=== PATIENT | female | born 1950 | race Caucasian/White ===

== ENCOUNTER → 2018-07-14 10:40 | Outpatient (CLI) | payer MEDICARE, SELFPAY ==
--- NOTE | 2018-07-14 10:50 | XR_ITS ---
XR shoulder RT min 2V HISTORY: ITS.REASON: ACUTE RT SHOULDER PAIN ORDERING PHYSICIAN: Jasmin Martinez PATIENT AGE: 68 years Comparison: None FINDINGS: No fracture or dislocation. No lytic or blastic change. There is normal mineralization. The joint spaces are well-preserved. No significant degenerative/arthritic changes. No erosive changes evident. IMPRESSION: Negative, no acute finding
== END ==
PROVIDERS: PCP Family Medicine; Visit Provider Nurse Practitioner Family
DX: M25.511 Pain in right shoulder (principal)
CPT/HCPCS: 73030

== ENCOUNTER → 2020-10-08 12:25 | Outpatient (CLI) | payer MEDICARE, SELFPAY | PROVIDERS: Visit Provider Family Medicine | DX: J40 Bronchitis, not specified as acute or chronic (principal) ==

== ENCOUNTER 2022-06-30 18:51 | Emergency (ER) | payer MEDICARE, SELFPAY ==
[2022-06-30 19:00] VITALS: BP 107/77; PULSE 65; RESP 20; TEMP 36.9; O2SAT 98; BMI 28.8
--- NOTE | 2022-06-30 19:21 | EXP.UTC ---
Discharge Plan Disposition Patient Disposition: Home, Self-Care Condition: Good Prescriptions Prescriptions: New azithromycin [Zithromax] 250 mg tablet 250 mg PO UD DOSE PK Qty: 6 0RF Rx Instructions: Take two (2) tablets today, then one (1) tablet days #2 thru #5 benzonatate [benzonatate] 100 mg capsule 100 mg PO TIDP PRN (Reason: Cough) Qty: 30 0RF methylprednisolone 4 mg Tablets,Dose Pack 4 mg PO DIRECTED Qty: 21 0RF Referrals Follow up/Referrals: Casimiro Carpenter MD [Primary Care Provider] - See instructions Activity Restrictions/Add. Instructions Additional Instructions/Restrictions: Drink plenty of fluids. Take tylenol or ibuprofen for pain or fever. Take the medications as directed. Follow up with your regular doctor. GO TO THE ER FOR ANY WORSENING SYMPTOMS Throw your tooth brush away and get a new one. Quarantine until you know the results of your covid-19 test. Notify your school or workplace of your results and follow their instructions regarding return to work/school. Clinical Impressions Clinical Impression: Sinusitis, Pharyngitis Instructions Patient Instructions: DI for Pharyngitis/Tonsillopharyngitis -- Adult, DI for Sinusitis, Azithromycin Discharge ED Provider: Isael Ta [facility] General Stated complaint: fever,BOWSER Sore throat Mode of Arrival: Ambulatory Source of Information: Patient Limitations: No Limitations Time Seen by Provider: 06/30/22 19:18 Description of Symptoms (Recalled from Triage Doc. by RN): throat, fever, hx of strep and sinus infection HEENT Symptoms (Recalled from RN notes): Yes Resp Symptoms (Recalled from RN notes): No Skin Symptoms (Recalled from RN notes): No MS Symptoms (Recalled from RN notes): No Functional Status (Recalled from RN notes): n/a History of Present Illness Provider Complaint: She states that for the past 5 day she has had sinus congestion, scratchy throat and ear pressure. She denies fever. Related Data Previous Rx's Medication Instructions Recorded azithromycin 250 mg tablet 250 mg PO UD DOSE PK #6 tabs 06/30/22 (Zithromax) benzonatate 100 mg capsule 100 mg PO TIDP PRN Cough #30 caps 06/30/22 methylprednisolone 4 mg tablets in 4 mg PO DIRECTED #21 tabs 06/30/22 a dose pack Allergies Allergy/AdvReac Type Severity Reaction Status Date / Time iodine Allergy Verified 06/30/22 19:12 Worker's Comp Is this a Worker's Comp case?: No [facility] Disclaimer: The information contained in this section may have been updated after the patient was seen, as this information can be updated by other users. Social History Smoking Status: Never smoker alcohol intake: never current occupational status: retired Travel in the last 8 weeks: None ROS Obtained: Yes All systems reviewed & no additional complaints except as documented Constitutional Constitutional: Reports poor appetite Eyes Eyes: Reports system reviewed and no additional complaints, except as documented ENT Ears, Nose, Mouth, and Throat: Reports as per HPI Cardiovascular Cardiovascular: Reports system reviewed and no additional complaints, except as documented and Denies chest pain Respiratory Respiratory: Denies shortness of breath, Denies chest congestion, Reports cough, Denies stridor and Denies wheezing Gastrointestinal Gastrointestingal: Reports system reviewed and no additional complaints, except as documented; Denies abdominal pain, diarrhea or vomiting Musculoskeletal Musculoskeletal: Reports system reviewed and no additional complaints, except as documented and Denies arthralgias Integumentary/Breasts Skin/Breast: Reports system reviewed and no additional complaints, except as documented and Denies rash Neurologic Neurologic: Denies paresthesias Allergic/Immunologic Allergic/Immunologic: Denies wheezing Physical Exam General General appearance: alert and in no
[2022-06-30 19:33] LABS: UTC Strep Screen (Rapid) Negative (Negative)
[2022-06-30 19:47] VITALS: BP 107/77; PULSE 65; RESP 20; TEMP 36.9; O2SAT 98
== END 2022-06-30 19:47 | disposition home or self-care (01) ==
PROVIDERS: Emergency Provider Nurse Practitioner Family; PCP Family Medicine
DX: J01.90 Acute sinusitis, unspecified (principal); J02.9 Acute pharyngitis, unspecified; R50.9 Fever, unspecified
CPT/HCPCS: 87880; 99212; 99214; G0463

== ENCOUNTER 2022-11-17 09:01 | Emergency (ER) | payer MEDICARE, SELFPAY ==
[2022-11-17 09:10] VITALS: BP 121/65; PULSE 54; RESP 20; TEMP 36.5; O2SAT 98; BMI 31.0
--- NOTE | 2022-11-17 09:12 | EXP.UTC ---
Discharge Plan Disposition Patient Disposition: Home, Self-Care Condition: Good Prescriptions Prescriptions: New ciprofloxacin HCl [Cipro] 500 mg tablet 500 mg PO BID 7 Days Qty: 14 0RF No Action bisoprolol fumarate 5 mg tablet 5 mg PO DAILY levothyroxine 125 mcg Tablet 125 mcg PO DAILY montelukast 10 mg tablet 10 mg PO DAILY Referrals Follow up/Referrals: Casimiro Carpenter MD [Primary Care Provider] - See instructions Activity Restrictions/Add. Instructions Additional Instructions/Restrictions: Drink plenty of fluids. Take tylenol or ibuprofen for pain or fever. Take the medications as directed. Follow up with your regular doctor. GO TO THE ER FOR ANY WORSENING SYMPTOMS We will culture the urine. That will tell what bacteria is causing your infection and which antibiotics will treat it best. Sometimes the first antibiotic we prescribe turns out to not work against different bacteria. So, make sure you follow up within 3 days if you are not getting better. Clinical Impressions Clinical Impression: UTI (urinary tract infection) Instructions Patient Instructions: Urinary Tract Infection, DI for Urinary Tract Infection (UTI) Discharge ED Provider: Isael Ta [facility] General Stated complaint: right side pain Time Seen by Provider: 11/17/22 09:12 History of Present Illness Provider Complaint: She states that she has had dysuria and urinary frequency for the past 2 days. Related Data Home Medications Medication Instructions Recorded Confirmed bisoprolol fumarate 5 mg tablet 5 mg PO DAILY . 11/17/22 11/17/22 levothyroxine 125 mcg tablet 125 mcg PO DAILY Supplement 11/17/22 11/17/22 montelukast 10 mg tablet 10 mg PO DAILY Allergy Symptoms 11/17/22 11/17/22 Previous Rx's Medication Instructions Recorded ciprofloxacin HCl 500 mg tablet 500 mg PO BID 7 days #14 tabs 11/17/22 (Cipro) Allergies Allergy/AdvReac Type Severity Reaction Status Date / Time iodine Allergy Verified 06/30/22 19:12 [facility] Disclaimer: The information contained in this section may have been updated after the patient was seen, as this information can be updated by other users. Medical History Asthma Thyroid disease Surgical History History of cholecystectomy Social History Smoking Status: Never smoker alcohol intake: never current occupational status: retired Travel in the last 8 weeks: None ROS Obtained: Yes All systems reviewed & no additional complaints except as documented Constitutional Constitutional: Reports system reviewed and no additional complaints, except as documented, Denies chills and Denies fever(s) Eyes Eyes: Denies eye discharge ENT Ears, Nose, Mouth, and Throat: Denies dysphagia, Denies sore throat and Denies throat swelling Cardiovascular Cardiovascular: Denies chest pain and Denies dyspnea Respiratory Respiratory: Denies chest congestion, Denies cough and Denies dyspnea Gastrointestinal Gastrointestingal: Denies abdominal pain, constipation, diarrhea, dysphagia, nausea or vomiting Genitourinary Female Genitourinary: Reports as per HPI, Reports dysuria, Reports sexual dysfunction, Reports urinary frequency, Denies urinary incontinence and Reports urinary hesitancy Musculoskeletal Musculoskeletal: Denies arthralgias and Reports back pain Integumentary/Breasts Skin/Breast: Denies rash Neurologic Neurologic: Denies paresthesias Allergic/Immunologic Allergic/Immunologic: Denies throat swelling Physical Exam General General appearance: alert and in no apparent distress Head Head exam: atraumatic and normocephalic Eye Eye exam: Present normal appearance, PERRL and EOMI ENT ENT exam: Prese
[2022-11-17 09:20] LABS: Microscopic, Urine URINE MICROSCOPIC (MICROSCOPIC)
[2022-11-17 09:22] LABS: Appearance,Urine CLEAR (Clear); Bilirubin,Urine Negative (Negative); Blood, Urine Negative (Negative); Color,Urine YELLOW (Yellow); Glucose,Urine (UA) Negative (Negative); Ketones,Urine Negative (Negative); Leukocyte Esterase,Urine 1+ (Negative); Nitrate,Urine Negative (Negative); PH,Urine 6.5 (5.0-8.5); Protein,Urine Negative (Negative); Urobilinogen,Urine 0.2 EU/dl (0.2)
[2022-11-17 09:33] LABS: Bacteria,Urine 1+ /lpf
[2022-11-17 09:35] VITALS: BP 121/65; PULSE 54; RESP 18; TEMP 36.5; O2SAT 98
== END 2022-11-17 09:36 | disposition home or self-care (01) ==
PROVIDERS: Emergency Provider Nurse Practitioner Family; PCP Family Medicine
DX: N39.0 Urinary tract infection, site not specified (principal); E03.9 Hypothyroidism, unspecified; J45.909 Unspecified asthma, uncomplicated
CPT/HCPCS: 81001; 87086; 99212; 99214; G0463

== ENCOUNTER 2022-11-25 15:27 | Emergency (ER) | payer MEDICARE, SELFPAY ==
[2022-11-25 15:50] VITALS: BP 120/72; PULSE 83; RESP 19; TEMP 37.2; O2SAT 98; BMI 31.3
--- NOTE | 2022-11-25 16:10 | EXP.UTC ---
Discharge Plan Disposition Patient Disposition: Home, Self-Care Condition: Good Prescriptions Prescriptions: New fluticasone propionate [Flonase Allergy Relief] 50 mcg/actuation spray,suspension 1 - 2 spray intranasal DAILY Qty: 16 0RF Rx Instructions: administer into each nostril No Action bisoprolol fumarate 5 mg tablet 5 mg PO DAILY levothyroxine 125 mcg Tablet 125 mcg PO DAILY montelukast 10 mg tablet 10 mg PO DAILY ciprofloxacin HCl [Cipro] 500 mg tablet 500 mg PO BID 7 Days Qty: 14 0RF Referrals Follow up/Referrals: Casimiro Carpenter MD [Primary Care Provider] - See instructions Activity Restrictions/Add. Instructions Additional Instructions/Restrictions: *Monitor Temp, Over the counter Motrin or Tylenol as directed/as needed Tylenol every 4 hours and Motrin every 6 hours (as long as your family doctor has told you that you can take it) for fever or pain. and straight to ER if unable to lower temp less than 101.0 after medication given *Warm salt water gargles may help to soothe the throat *Throat Lozenges? *Warm fluids like tea with honey may help to soothe the throat? *Sleep elevated *Humidifier/Vaporizer *Flonase 2 sprays in each nostril daily but be aware that it may take 2-3 days before you notice improvement Follow up IMMEDIATELY for new or worsening symptoms or no Noticeable improvement over the next 48-72 hours. 911 for difficulty breathing or swallowing You were tested for today for Upper Respiratory Panel with COVID19 your test result should be back in the next 24-48 hours, you may check your results on the [facility] Clinical Impressions Clinical Impression: Viral upper respiratory infection Instructions Patient Instructions: Sore Throat, DI for Nasal Congestion Discharge ED Provider: Melanie Ott [facility] [place] General Stated complaint: headache,fever,nausea,cough Mode of Arrival: Ambulatory Source of Information: Patient Limitations: No Limitations Time Seen by Provider: 11/25/22 16:15 Description of Symptoms (Recalled from Triage Doc. by RN): PATIENT C/O HEADACHE, NAUSEA, AND FEVER SINCE THIS MORNING HEENT Symptoms (Recalled from RN notes): Yes Resp Symptoms (Recalled from RN notes): No Skin Symptoms (Recalled from RN notes): No MS Symptoms (Recalled from RN notes): No Functional Status (Recalled from RN notes): WNL History of Present Illness Provider Complaint: Patient states that she was fine when she laid down last night but woke up in the middle of the night having fever, chills, sinus congestion and headache States that today she has continued to feel bad with pressure in her sinuses so she came in to get checked Related Data Home Medications Medication Instructions Recorded Confirmed bisoprolol fumarate 5 mg tablet 5 mg PO DAILY . 11/17/22 11/17/22 levothyroxine 125 mcg tablet 125 mcg PO DAILY Supplement 11/17/22 11/17/22 montelukast 10 mg tablet 10 mg PO DAILY Allergy Symptoms 11/17/22 11/17/22 Previous Rx's Medication Instructions Recorded ciprofloxacin HCl 500 mg tablet 500 mg PO BID 7 days #14 tabs 11/17/22 (Cipro) fluticasone propionate 50 1 - 2 spray intranasal DAILY #16 11/25/22 mcg/actuation nasal grams spray,suspension (Flonase Allergy Relief) Allergies Allergy/AdvReac Type Severity Reaction Status Date / Time iodine Allergy Verified 06/30/22 19:12 Worker's Comp Is this a Worker's Comp case?: No [facility] Disclaimer: The information contained in this section may have been updated after the patient was seen, as this information can be updated by other users. Medical History Asthma Thyroid disease Surgical History History of cholecystectomy Social History Smoking Status: Never smoker alcoh
[2022-11-25 16:20] VITALS: BP 120/72; PULSE 83; RESP 19; TEMP 37.2; O2SAT 98
== END 2022-11-25 16:22 | disposition home or self-care (01) ==
PROVIDERS: Emergency Provider Nurse Practitioner; PCP Family Medicine
DX: U07.1 COVID-19 (principal); R50.9 Fever, unspecified; R51.9 Headache, unspecified; E03.9 Hypothyroidism, unspecified; J45.909 Unspecified asthma, uncomplicated
CPT/HCPCS: 99212; 99214; G0463

== ENCOUNTER 2022-11-26 09:13 | Emergency (ER) | payer MEDICARE, SELFPAY ==
[2022-11-26 09:13] VITALS: BP 158/80; PULSE 70; RESP 18; TEMP 37.3; O2SAT 95; BMI 31.3
--- NOTE | 2022-11-26 09:23 | EXP.UTC ---
Discharge Plan Disposition Patient Disposition: Home, Self-Care Condition: Good Prescriptions Prescriptions: New Paxlovid 300 mg (150 mg x 2)-100 mg tablets,dose pack See Rx Instructions .ROUTE .COMPLEX Qty: 30 0RF Rx Instructions: take TWO 150 mg tablets of nirmatrelvir with ONE 100 mg tablet of ritonavir twice daily for 5 days benzonatate [benzonatate] 100 mg capsule 100 mg PO TIDP PRN (Reason: Cough) Qty: 30 0RF ondansetron 4 mg Tablet,Disintegrating 4 mg PO Q8H PRN (Reason: Nausea) Qty: 12 0RF No Action bisoprolol fumarate 5 mg tablet 5 mg PO DAILY levothyroxine 125 mcg Tablet 125 mcg PO DAILY montelukast 10 mg tablet 10 mg PO DAILY ciprofloxacin HCl [Cipro] 500 mg tablet 500 mg PO BID 7 Days Qty: 14 0RF fluticasone propionate [Flonase Allergy Relief] 50 mcg/actuation spray,suspension 1 - 2 spray intranasal DAILY Qty: 16 0RF Rx Instructions: administer into each nostril Referrals Follow up/Referrals: Casimiro Carpenter MD [Primary Care Provider] - See instructions Activity Restrictions/Add. Instructions Additional Instructions/Restrictions: Drink plenty of fluids. Take tylenol for pain or fever. Take the medications as directed. Follow up with your regular doctor. GO TO THE ER FOR ANY WORSENING SYMPTOMS per current recommendations of the cdc. Clinical Impressions Clinical Impression: COVID-19 Instructions Patient Instructions: Coronavirus Disease 2019, Preventing the Spread of Coronavirus Discharge Instructions Discharge ED Provider: Isael Ta [facility] General Stated complaint: head congestion cough nausea Time Seen by Provider: 11/26/22 09:23 History of Present Illness Provider Complaint: She states that she has felt bad for the past 2 days. She has sinus congestion, head ache, scratchy sore throat, nonproductive cough and malaise. She tested positive on a home covid-19 test this morning. Related Data Home Medications Medication Instructions Recorded Confirmed bisoprolol fumarate 5 mg tablet 5 mg PO DAILY . 11/17/22 11/17/22 levothyroxine 125 mcg tablet 125 mcg PO DAILY Supplement 11/17/22 11/17/22 montelukast 10 mg tablet 10 mg PO DAILY Allergy Symptoms 11/17/22 11/17/22 Previous Rx's Medication Instructions Recorded ciprofloxacin HCl 500 mg tablet 500 mg PO BID 7 days #14 tabs 11/17/22 (Cipro) fluticasone propionate 50 1 - 2 spray intranasal DAILY #16 11/25/22 mcg/actuation nasal grams spray,suspension (Flonase Allergy Relief) benzonatate 100 mg capsule 100 mg PO TIDP PRN Cough #30 caps 11/26/22 nirmatrelvir 300 mg (150 mg See Rx Instructions PO .COMPLEX 11/26/22 x2)-ritonavir 100 mg tablet,dose #30 tabs pack (Paxlovid) ondansetron 4 mg disintegrating 4 mg PO Q8H PRN Nausea #12 tabs 11/26/22 tablet Allergies Allergy/AdvReac Type Severity Reaction Status Date / Time iodine Allergy Verified 06/30/22 19:12 [facility] Disclaimer: The information contained in this section may have been updated after the patient was seen, as this information can be updated by other users. Medical History Asthma Thyroid disease Surgical History History of cholecystectomy Social History Smoking Status: Never smoker alcohol intake: never current occupational status: retired Travel in the last 8 weeks: None ROS Obtained: Yes All systems reviewed & no additional complaints except as documented Constitutional Constitutional: Reports poor appetite Eyes Eyes: Reports system reviewed and no additional complaints, except as documented ENT Ears, Nose, Mouth, and Throat: Reports as per HPI Cardiovascular Cardiovascular: Reports system reviewed and no additional complaints, except as documented and Denies chest pain Respiratory R
[2022-11-26 10:07] VITALS: BP 158/80; PULSE 70; RESP 18; TEMP 37.3; O2SAT 95
== END 2022-11-26 10:08 | disposition home or self-care (01) ==
PROVIDERS: Emergency Provider Nurse Practitioner Family; PCP Family Medicine
DX: U07.1 COVID-19 (principal); R51.9 Headache, unspecified; R53.81 Other malaise; E03.9 Hypothyroidism, unspecified; J45.909 Unspecified asthma, uncomplicated
CPT/HCPCS: 99212; 99214; G0463

== ENCOUNTER 2023-05-18 10:12 | Emergency (ER) | payer MEDICARE, SELFPAY ==
--- NOTE | 2023-05-18 11:08 | ED_ITS ---
Discharge Plan Disposition Patient Disposition: Home, Self-Care Condition: Good Prescriptions Prescriptions: New oseltamivir [Tamiflu] 75 mg capsule 75 mg PO BID Qty: 10 0RF ondansetron 4 mg Tablet,Disintegrating 4 mg PO Q8H PRN (Reason: Nausea) Qty: 12 0RF benzonatate [benzonatate] 100 mg capsule 100 mg PO TIDP PRN (Reason: Cough) Qty: 30 0RF No Action bisoprolol fumarate 5 mg tablet 5 mg PO DAILY levothyroxine 125 mcg Tablet 125 mcg PO DAILY montelukast 10 mg tablet 10 mg PO DAILY ciprofloxacin HCl [Cipro] 500 mg tablet 500 mg PO BID 7 Days Qty: 14 0RF Paxlovid 300 mg (150 mg x 2)-100 mg tablets,dose pack See Rx Instructions .ROUTE .COMPLEX Qty: 30 0RF Rx Instructions: take TWO 150 mg tablets of nirmatrelvir with ONE 100 mg tablet of ritonavir twice daily for 5 days benzonatate [benzonatate] 100 mg capsule 100 mg PO TIDP PRN (Reason: Cough) Qty: 30 0RF ondansetron 4 mg Tablet,Disintegrating 4 mg PO Q8H PRN (Reason: Nausea) Qty: 12 0RF fluticasone propionate [Flonase Allergy Relief] 50 mcg/actuation spray,suspension 1 - 2 spray intranasal DAILY Qty: 16 0RF Rx Instructions: administer into each nostril Referrals Follow up/Referrals: Casimiro Carpenter MD [Primary Care Provider] - See instructions Activity Restrictions/Add. Instructions Additional Instructions/Restrictions: Drink plenty of fluids. Take tylenol or ibuprofen for pain or fever. Take the medications as directed. Follow up with your regular doctor. GO TO THE ER FOR ANY WORSENING SYMPTOMS Clinical Impressions Clinical Impression: Influenza A Instructions Patient Instructions: DI for Influenza -- Adult, Ondansetron, Oseltamivir Discharge ED Provider: Isael Ta [facility] General Stated complaint: cough, congestion, fever, sore throay, nausea Time Seen by Provider: 05/18/23 11:08 History of Present Illness Provider Complaint: She states that for the past 1 day she has had sore throat, fever, malaise, body aches and a cough. Related Data Home Medications Medication Instructions Recorded Confirmed bisoprolol fumarate 5 mg tablet 5 mg PO DAILY . 11/17/22 11/17/22 levothyroxine 125 mcg tablet 125 mcg PO DAILY Supplement 11/17/22 11/17/22 montelukast 10 mg tablet 10 mg PO DAILY Allergy Symptoms 11/17/22 11/17/22 Previous Rx's Medication Instructions Recorded ciprofloxacin HCl 500 mg tablet 500 mg PO BID 7 days #14 tabs 11/17/22 (Cipro) fluticasone propionate 50 1 - 2 spray intranasal DAILY #16 11/25/22 mcg/actuation nasal grams spray,suspension (Flonase Allergy Relief) benzonatate 100 mg capsule 100 mg PO TIDP PRN Cough #30 caps 11/26/22 nirmatrelvir 300 mg (150 mg See Rx Instructions PO .COMPLEX 11/26/22 x2)-ritonavir 100 mg tablet,dose #30 tabs pack (Paxlovid) ondansetron 4 mg disintegrating 4 mg PO Q8H PRN Nausea #12 tabs 11/26/22 tablet benzonatate 100 mg capsule 100 mg PO TIDP PRN Cough #30 caps 05/18/23 ondansetron 4 mg disintegrating 4 mg PO Q8H PRN Nausea #12 tabs 05/18/23 tablet oseltamivir 75 mg capsule (Tamiflu) 75 mg PO BID #10 caps 05/18/23 Allergies Allergy/AdvReac Type Severity Reaction Status Date / Time iodine Allergy Verified 06/30/22 19:12 [facility] Disclaimer: The information contained in this section may have been updated after the patient was seen, as this information can be updated by other users. Medical History Asthma Thyroid disease Surgical History History of cholecystectomy Social History Smoking Status: Never smoker alcohol intake: never current occupational status: retired Travel in the last 8 weeks: None ROS Obtained: Yes All systems reviewed & no additional complaints except as documented Constitutional Constitutional: Reports chills and Reports fever(s) Eyes Eyes: Denies eye discharge ENT Ears, Nose, Mouth, and Throat: Reports as per HPI Cardiovascular Cardiovascular: Denies chest pain Respiratory Respiratory: Denies chest congestion and Reports cough Gastrointestinal Gastrointestingal: Reports nausea; Denies abdominal pain, constipation, cramping, diarrhea or vomiting Musculoskeletal Musculoskeletal: Denies arthralgias Integumentary/Breasts Skin/Breast: Denies rash Neurologic Neurologic: Denies paresthesias Physical Exam General General appearance: alert and in no apparent distress Eye Eye exam: Present normal appearance, PERRL and EOMI ENT ENT exam: Present mucous membranes moist and normal external ear exam Expanded ENT Exam External ear exam: Present normal external inspection TM/Canal exam: Bilateral TM: erythema and bulging Nose exam: Absent sinus tenderness Nasal speculum exam: Bilateral: normal Mouth exam: Present normal external inspection; Absent drooling Teeth exam: Present normal inspection Throat exam: Present tonsillar erythema and tonsillomegaly Neck Neck exam: Present normal inspection, full ROM and trachea midline; Absent tenderness, lymphadenopathy or thyromegaly Chest Chest inspection: Present normal inspection and symmetric chest wall rise; Absent tenderness or rash Respiratory Respiratory exam: Present normal lung sounds bilaterally; Absent respiratory distress, wheezes, stridor or accessory muscle use Cardiovascular Cardiovascular exam: Present regular rate, normal rhythm and normal heart sounds Abdominal Exam Abdominal exam: Present soft; Absent distention, tenderness, guarding, rebound or rigidity Extremities Exam Extremities exam: Present normal inspection, full ROM and normal capillary refill; Absent tenderness or calf tenderness Back Exam Back exam: Present normal inspection and full ROM; Absent tenderness Neurological Exam Neurological exam: Present alert and oriented X3 Psychiatric Psychiatric exam: Present normal affect and normal mood Skin Skin exam: Present warm, dry, intact and normal color Lymphatic Lymphatic Findings: no adenopathy Medical Decision Making Medical Records Medical records reviewed: No I reviewed the patient's medical records. Octaviano Inquiry Pt receiving controlled substance: No Lab Data Lab results reviewed: Yes I reviewed the patient's lab results.
[2023-05-18 11:10] VITALS: PULSE 62; RESP 19; TEMP 36.8; O2SAT 97; BMI 33.3
[2023-05-18 11:39] LABS: UTC Strep Screen (Rapid) Negative (Negative)
[2023-05-18 11:40] LABS: UTC Influenza A Antigen Positive (Negative); UTC Influenza B Antigen Negative (Negative)
[2023-05-18 11:41] VITALS: BP 0/0; PULSE 62; RESP 19; TEMP 36.8; O2SAT 97
== END 2023-05-18 11:49 | disposition home or self-care (01) ==
PROVIDERS: Emergency Provider Nurse Practitioner Family; PCP Family Medicine
DX: J10.1 Influenza due to other identified influenza virus with other respiratory manifestations (principal); R50.9 Fever, unspecified; R05.9 Cough, unspecified; R11.0 Nausea; R07.0 Pain in throat; E03.9 Hypothyroidism, unspecified
CPT/HCPCS: 87804; 87880; 99212; 99214; G0463

== ENCOUNTER 2025-03-14 11:01 | Emergency (ER) | payer MEDICARE, SELFPAY ==
--- OUTSIDE RECORDS SUMMARY | 2025-02-03 03:45 | XMS_ITS | Continuity of Care Document ---
Author Organization [facility] Address [address] [place] [address] Phone Care Team Providers Care Land Measurer Name Role Phone Steve MSN, CITY ADMINISTRATOR, Rosette Unavailable Unavai lable Allergies, Adverse Reactions, Alerts Substance Reaction Status Criticality No Known Allergies Active No Inform ation Medications Medication Instructions Dosage Effective Dates (start - stop) Status Comments LEVOTHYROXINE SODIUM 137MCG TABLET TAKE ONE (1) TABLET BY ORAL ROUTE EVERY DAY - Active BUDESONIDE/FORMOTEROL FUMARATE DIHYDRATE 160-4.5 AEROSOL INHALE TWO (2) PUFFS BY MOUTH TWO (2) TIMES A DAY - Active montelukast 10 mg tablet TAKE ONE (1) TABLET BY ORAL ROUTE EVERY DAY IN THE EVENING - Active loratadine 10 mg tablet TAKE ONE (1) TABLET BY ORAL ROUTE EVERY DAY - Active bisoprolol fumarate 5 mg tablet TAKE ONE (1) TABLET BY ORAL ROUTE EVERY DAY - Active albuterol sulfate HFA 90 mcg/actuation aerosol inhaler inhale 2 puff by inhalation route every 4 - 6 hours as needed 180 MCG - Active albuterol sulfate 2.5 mg/3 mL (0.083 %) solution for nebulization inhale 3 milliliter by nebulization route 3 times every day 2.5 MG - Active Procedures Procedure Date ROUTINE VENIPUNCTURE Results Test Name Date and Time Measure Units Reference Range Abnormal Flag Status Comments Panel Description: CBC With Differential/Platele t Final WBC 08:16:00 5.9 x10E3/uL 3.4-10.8 Final Performed by:Sebastian LUND) RBC 08:16:00 4.56 x10E6/uL 3.77-5.28 Final Performed by:Sebastian LUND) Hemoglobin 08:16:00 13.3 g/dL 11.1-15.9 Final Performed by:Sebastian Nguyễn (YUKI) Hematocrit 08:16:00 41.6 % 34.0-46.6 Final Performed by:Sebastian LUND) MCV 08:16:00 91 fL 79-97 Final Performed by:Sebastian LUND) MCH 08:16:00 29.2 pg 26.6-33.0 Final Performed by:Sebastian LUND) MCHC 08:16:00 32.0 g/dL 31.5-35.7 Final Performed by:Sebastian LUND) RDW 08:16:00 12.9 % 11.7-15.4 Final Performed by:Sebastian LUND) Platelets 08:16:00 302 x10E3/uL 150-450 Final Performed by:Sebastian LUND) Neutrophils 08:16:00 61 % Not Estab. Final Performed by:Sebastian LUND) Lymphs 08:16:00 27 % Not Estab. Final Performed by:Sebastian Nguyễn (YUKI) Monocytes 08:16:00 9 % Not Estab. Final Performed by:Sebastian LUND) Eos 08:16:00 2 % Not Estab. Final Performed by:Sebastian LUND) Basos 08:16:00 1 % Not Estab. Final Performed by:Sebastian LUND) Immature Cells 08:16:00 Final Performed by:Sebastian LUND) Neutrophils (Absolute) 08:16:00 3.6 x10E3/uL 1.4-7.0 Final Performed by:Sebastian LUND) Lymphs (Absolute) 08:16:00 1.6 x10E3/uL 0.7-3.1 Final Performed by:Sebastian LUND) Monocytes(Absolu te) 08:16:00 0.5 x10E3/uL 0.1-0.9 Final Performed by:Sebastian LUND) Eos (Absolute) 08:16:00 0.1 x10E3/uL 0.0-0.4 Final Performed by:Sebastian LUND) Baso (Absolute) 08:16:00 0.0 x10E3/uL 0.0-0.2 Final Performed by:Sebastian LUND) Immature Granulocytes 08:16:00 0 % Not Estab. Final Performed by:Sebastian LUND) Immature Grans (Abs) 08:16:00 0.0 x10E3/uL 0.0-0.1 Final Performed by:Sebastian LUND) NRBC 08:16:00 Final Performed by:Sebastian LUND) Hematology Comments: 08:16:00 Final Performed by:Sebastian LUND) Panel Description: Comp. Metabolic Panel (14) F inal Glucose 07:33:00 TNP mg/dL Final Test not performed. Serum was in contact with cells when receivedwhich will make the result inaccurate.Perfo rmed by:Sebastian LUND) BUN 07:33:00 15 mg/dL 8-27 Final Performed by:Sebastian LUND) Creatinine 07:33:00 0.93 mg/dL 0.57-1.00 Final Performed by:Sebastian LUND) eGFR 07:33:00 65 mL/min/1 .73 >59 Final Performed by:Sebastian LUND) BUN/Creatinine Ratio Oct-30-2 025 07:33:00 16 12-28 Final Performed by:Sebastian LUND) Sodium Oct-30-2 025 07:33:00 139 mmol/L 134-144 Final Performed by:Sebastian Nguyễn (YUKI) Potassium Oct-30-2 025 07:33:00 TNP mmol/L Final Test not performed. Serum was in contact with cells when receivedwhich will make the result inaccurate.Perfo rmed by:Sebastian Nguyễn (YUKI) Chloride Oct-30-2 025 07:33:00 102 mmol/L 96-106 Final Performed by:Sebastian Nguyễn (YUKI) Carbon Dioxide, Total Oct-30-2 025 07:33:00 23 mmol/L 20-29 Final Performed by:Sebastian LUND) Calcium Oct-30-2 025 07:33:00 9.2 mg/dL 8.7-10.3 Final Performed by:Sebastian LUND) Protein, Total Oct-30-2 025 07:33:00 6.5 g/dL 6.0-8.5 Final Performed by:Sebastian Nguyễn (YUKI) Albumin Oct-30-2 025 07:33:00 4.1 g/dL 3.8-4.8 Final Performed by:Sebastian LUND) Globulin, Total Oct-30-2 025 07:33:00 2.4 g/dL 1.5-4.5 Final Performed by:Sebastian LUND) Bilirubin, Total Oct-30-2 025 07:33:00 0.4 mg/dL 0.0-1.2 Final Performed by:Sebastian LUND) Alkaline Phosphatase Oct-30-2 025 07:33:00 81 IU/L 49-135 Final Performed by:Sebastian Nguyễn (YUKI) AST (SGOT) Oct-30-2 025 07:33:00 14 IU/L 0-40 Final Performed by:Sebastian LUND) ALT (SGPT) Oct-30-2 025 07:33:00 20 IU/L 0-32 Final Performed by:Sebastian Nguyễn (YUKI) Panel Description: Lipid Panel Final Cholesterol, Total Oct-30-2 025 07:33:00 243 mg/dL 100-199 H Final Performed by:Sebastian LUND) Triglycerides 07:33:00 90 mg/dL 0-149 Final Performed by:Sebastian Nguyễn (YUKI) HDL Cholesterol 07:33:00 83 mg/dL >39 Final Performed by:Sebastian LUND) VLDL Cholesterol Lion 07:33:00 15 mg/dL 5-40 Final Performed by:Sebastian LUND) LDL Chol Calc ([facility]) 07:33:00 145 mg/dL 0-99 H Final Performed by:Sebastian LUND) LDL Calc Comment: 07:33:00 Final Performed by:Sebastian Nguyễn (YUKI) Panel Description: Vitamin B12 and Folate Final Vitamin B12 11:11:00 338 pg/mL 232-1245 Final Performed by:Sebastian LUND) Folate (Folic Acid), Serum 11:11:00 10.9 ng/mL >3.0 Final A serum folate concentration of less than 3.1 ng/mL isconsidered to represent clinical deficiency.Perfo rmed by:Sebastian Nguyễn (YUKI) Panel Description: Hemoglobin A1c/Hemoglobin.tot al in Blood Final Hemoglobin A1c 09:03:00 5.4 % 4.8-5.6 Final . Prediabetes: 5.7 - 6.4 Diabetes: >6.4 Glycemic control for adults with diabetes: <7.0Performed by:Sebastian Nguyễn (YUKI) Panel Description: 25-hydrox yvitamin D3 [Mass/volume] in Serum or Plasma Final Vitamin D, 25-Hydroxy 07:06:00 30.0 ng/mL 30.0-100.0 Final Vitamin D deficiency has been defined by the [place] [employer] and an Endocrine Society practice guideline as alevel of serum 25-OH vitamin D less than 20 ng/mL (1,2).The Endocrine Society went on to further define vitamin Dinsufficiency as a level between 21 and 29 ng/mL (2).1. IOM ([place] [employer]). 2010. Dietary reference intakes for calcium and D. [place]: The National Academies Press.2. Kelsey MF, Karina WEAVER, Bell BOWSER, et al. Evaluation, treatment, and prevention of vitamin D deficiency: an Endocrine Society clinical practice guideline. JCEM. 2010; 96(7):1911-30.Pe rformed by:Sebastian Nguyễn (YUKI) Panel Description: Thyrotrop in [Units/volume] in Serum or Plasma by Detection limit <= 0.05 mIU/L Final TSH 025 09:11:00 0.670 uIU/mL 0.450-4.500 Final Performed by:Sebastian Nguyễn (YUKI) Advance Directives Directive Yes / No Effective Date File Name No Information Encounters Encounter Description Practice Location Reason(s) For Visit Diagnoses Date Provider [facility], [address] [place] [address], [facility], tel:[phone] [facility] Fasting Labs (chief complaint) Hypothyroidism, unspecified 5 Wilson Rosette. [address] [place], [place], [address] [place] [address] , . tel: [phone] [address], [facility], tel:[phone] [facility] No Information 5 Wilson Rosette. [address], [place], [id number] , . tel:[phone] [facility], [address] [place] [address], [facility], tel:[phone] [facility] [place] PPD (chief complaint) Encounter for screening for respiratory tuberculosis 5 Wilson Rosette. [address], [place], [id number] , . tel:[phone] [facility], [address] [place] [address], [facility], tel:[phone] [facility] Acute stress reaction 5 Wilson Rosette. [address], [place], [id number] , [place]. tel: [phone] [facility], [address] [place] [address], [facility], tel:[phone] [facility] No Information Oct-3 0-202 5 Wilson Rosette. [address], [place], [id number] , . tel: [phone] [facility], [address] [place] [address], [facility], [place] tel:[phone] [facility] [place] Sore Throat (chief complaint) Body mass index [BMI] 29.0-29.9, adultAsthmaAcute pharyngitis, unspecified Jose-2 0-202 5 Wilson Rosette. [address] [place], [place], [address] [place] [address] , . tel: [phone] [facility], [address] [place] [address], [facility], [place] tel:[phone] [facility] follow up on labs (chief complaint) AsthmaHypothyroidism, unspecifiedHyperlipidemia Body mass index [BMI] 30.0-30.9, adult Jose-1 0-202 5 Wilson Rosette. [address], [place], [address] , [place]. tel: [phone] [facility], [address] [place] [address], [facility], [place] tel:[phone] [facility] Fasting Labs (chief complaint) Hypothyroidism, unspecified Jose-0 3-202 5 Wilson Rosette. [address], [place], [address] , . tel: [phone] [facility], [address] [place] [address], [facility], [place] tel:[phone] [facility] Cough/rory estion (chief complaint) Prapare (chief complaint) Depression Screening (chief complaint) Acute upper respiratory infection, unspecifiedLow incomeAcute pharyngitis, unspecifiedCoughEncounter for screening for depressionObesity, unspecifiedBody mass index [BMI] 30.0-30.9, adult August- 5 Wilson Rosette. [address], [place], [address] , [place]. tel:[phone] [facility], [address] [place] [address], [facility], tel:[phone] [facility] No Information 5 Wilson Rosette. [address], [place], [id number] , [place]. tel:[phone] [facility], [address] [place] [address], [facility], tel:[phone] [facility] [place] Labs (chief complaint) Hypothyroidism, unspecified 5 Wilson Rosette. [address], [place], [address] , [place]. tel:[phone] [facility], [address] [place] [address], [facility], tel:[phone] [facility] FLU VACCINE (chief complaint) No Information 4 Wilson Rosette. [address] [place], [place], [id number] , [place]. tel:[phone] [facility], [address] [place] [address], [facility], [place] tel:[phone] [facility] BOWL ISSUES (chief complaint) Body mass index [BMI] 31.0-31.9, adultDiarrheaEncounter for screening for malignant neoplasm of colon 4 Wilson Rosette. [address], [place], [address] , [place]. tel: [phone] [facility], [address] [place] [address], [address], [place] tel:[phone] [facility] TB skin test (chief complaint) Encounter for screening for respiratory tuberculosis 4 Wilsonlonny Dinero. [address], [place], [address] , [place]. tel: [phone] [facility], [address] [place] [address], [facility], [place] tel:[phone] [facility] follow up on asthma (chief complaint) Body mass index [BMI] 32.0-32.9, adultAsthma 4 Wilsonlonny Dinero. [address] [place], [place], [address] , [place]. tel: [phone] [facility], [address] [place] [address], [facility], [place] tel:[phone] [facility] cough/feve r (chief complaint) AsthmaAcute upper respiratory infection, unspecifiedBody mass index [BMI] 32.0-32.9, adult 4 Wilsonloan Dinero. [address] [place], [place], [address] , [place]. tel: [phone] [facility], [address] [place] [address], [facility], [place] tel:[phone] [facility] COUGH/RORY ESTION (chief complaint) AsthmaOther seasonal allergic rhinitisBody mass index [BMI] 32.0-32.9, adultAcute pharyngitis, unspecifiedEncounter for screening for COVID-19 4 Wilsonkayla Dinero. [address] [place], [place], [address] , [place]. tel: [phone] [facility], [address] [place] [address], [facility], [place] tel:[phone] [facility] sciatic pain (chief complaint) Body mass index [BMI] 32.0-32.9, adultSciatica, left side Mar-0 4 Wilson Rosette. [address] [place], [place], [address] , [place]. tel: [phone] [facility], [address] [place] [address], [facility], tel:[phone] [facility] SORE THROAT (chief complaint) Body mass index [BMI] 32.0-32.9, adultSore throatNauseaCOVID-19Encou nter for screening for COVID-19 4 Wilson Rosette. [address], [place], [address] , [place]. tel: [phone] [facility], [address] [place] [address], [facility], tel:[phone] [facility] follow up labs (chief complaint) Hypothyroidism, unspecifiedHyperlipidemia Body mass index [BMI] 32.0-32.9, adultEncounter for screening for osteoporosis 4 Wilson Rosette. [address] [place], [place], [address] , [place]. tel: [phone] [address], [facility], tel:[phone] [facility] New to establish (chief complaint) Encounter for screening for depressionEncounter for screening examination for other mental health and behavioral disordersHypothyroidism, unspecifiedAsthmaOther seasonal allergic rhinitisA fibEncounter for immunizationEncntr screen mammogram for malignant neoplasm of breastBody mass index [BMI] 33.0-33.9, adult 4 Wilson Rosette. [address], [place], [address] , [place]. tel:[phone] Family History Family Member Type Diagnosis Age At Onset Daughter Problem Down Syndrome Brother Problem Alive and well Mother Problem Alcoholism (Cause Of ) Maternal grandfather Problem HX UNKNOWN Maternal grandmother Problem HX UNKNOWN Daughter Problem Alive and well Daughter Problem Alive and well Daughter Problem Alive and well Brother Problem Diabetes mellitus Father Problem MVA (PT WAS 8 YEARS OLD WHEN FATHER PASSED) Son Problem Alive and well Paternal grandfather Problem UNKNOWN Daughter Problem Alive and well Brother Problem COPD, HEART ISSUES Daughter Problem Alive and well Paternal grandmother Problem UNKNOWN Immunizations Vaccine Date Status Comments Influenza virus vaccine, trivalent (IIV3), split virus, preservative free, 0.5 mL dosage, for intramuscular use administered Source: Phyllis w Immunization Record Fluzone High-Dose Quad administered Sourc e: Other Registry COVID-19 Vector-NR (JSN) administered Kajal rce: Other Registry Fluzone High-Dose Quad administered Sourc e: Other Registry COVID-19 Vector-NR (JSN) administered Kajal rce: Other Registry Fluzone High-Dose Quad administered Sourc e: Other Registry Tdap, Adsorbed administered Source: Other Registry PCV13 administered Source: Other R egistry Influenza, High Dose administered Source: Other Registry Payers Payer name Insurance type Covered constitution party ID Authoriza tion(s) Mcr Adv Rossiter BCBS CI [id number] [facility] Adv Rossiter BCBS CI [id number] Social History Type Description Quantity Date Captured Comments Alcohol Use Details Unknown Caffeine Use Details Unknown Tobacco Use Status No Information Smoking Status No Information Sex Female Sexual Orientation Straight or heterosexual Apr Gender Identity Female Chief Complaint And Reason For Visit From encounter dated '02/03/2025 08:45'. Fasting Labs (chief complaint). Description: Pt is here today to have fasting labs collected. 1x attempt in right ac with butterfly needle. Successfully collected 3 tubes, pt tolerated well, gauze and coban applied, pt instructed to remove in 5-10 minutes, pt voiced understanding. Pt is scheduled to rtc in 2 weeks to follow up on lab results. Plan Of Treatment Date Type Action Status Goal Lipid panel. Due on due Goal Obtain Height, Weight, and B MS. Due on due Goal Generalized Anxi ety Disorder - 7 (AARON-7). Due on due Goal Follow up Plan f or abnormal BMI (Less than 18.5, greater than 25). Due on due Goal Drug Abuse Scree yani Test (DAST-10). Due on due Goal Vitamin B12. Due on due Goal Hepatitis C Screening due Goal Influenza vaccine. Due on Oc due Goal Pneumococcal vaccine due Goal Tobacco screening. Due on Au due Goal Unhealthy drug use screening due Goal CMP. Due on due Goal TSH. Due on due Goal Hematocrit/Hemoglobin. Due o n due Goal Vitamin D. Due on due Goal Tobacco Use Screening. Due o n due Goal Hemoglobin (Pree dave/HR 9 months). Due on due Goal CBC. Due on due Goal DEXA scan. Due on due Goal Diabetes screening. Due on due Goal Depression screening. Due on due Goal Vitamin B12. Due on due Goal Unhealthy drug use screening due Goal Obtain Height, Weight, and B MS. Due on due Goal Depression screening. Due on due Goal Lipid panel. Due on due Goal Diabetes screening. Due on due Goal Generalized Anxi ety Disorder - 7 (AARON-7). Due on due Goal Hematocrit/Hemoglobin. Due o n due Goal Tobacco Use Screening. Due o n due Goal CBC. Due on due Goal Hepatitis C Screening due Goal TSH. Due on due Goal DEXA scan. Due on due Goal Hemoglobin (Pree dave/HR 9 months). Due on due Goal Drug Abuse Scree yani Test (DAST-10). Due on due Goal CMP. Due on due Goal Pneumococcal vaccine due Goal Vitamin D. Due on due Goal Tobacco screening. Due on due Goal Influenza vaccine. Due on due Goal Follow up Plan f or abnormal BMI (Less than 18.5, greater than 25). Due on due Goal Lipid panel. Due on due Goal Drug Abuse Scree yani Test (DAST-10). Due on due Goal Hepatitis C Screening due Goal Generalized Anxi ety Disorder - 7 (AARON-7). Due on due Goal Hematocrit/Hemoglobin. Due o n due Goal Follow up Plan f or abnormal BMI (Less than 18.5, greater than 25). Due on due Goal DEXA scan. Due on due Goal Vitamin D. Due on due Goal Tobacco Use Screening. Due o n due Goal Pneumococcal vaccine due Goal Influenza vaccine. Due on due Goal Depression screening. Due on due Goal Obtain Height, Weight, and B MS. Due on due Goal Hemoglobin (Pree dave/HR 9 months). Due on due Goal TSH. Due on due Goal Diabetes screening. Due on due Goal CBC. Due on due Goal Unhealthy drug use screening due Goal Vitamin B12. Due on due Goal Tobacco screening. Due on due Goal CMP. Due on due Goal Lipid panel. Due on due Goal Follow up Plan f or abnormal BMI (Less than 18.5, greater than 25). Due on due Goal Depression screening. Due on due Goal Diabetes screening. Due on due Goal Generalized Anxi ety Disorder - 7 (AARON-7). Due on due Goal Tobacco Use Screening. Due o n due Goal Hepatitis C Screening due Goal CMP. Due on due Goal Influenza vaccine. Due on due Goal Pneumococcal vaccine due Goal Obtain Height, Weight, and B MS. Due on due Goal TSH. Due on due Goal DEXA scan. Due on due Goal Tobacco screening. Due on due Goal Vitamin B12. Due on due Goal CBC. Due on due Goal Vitamin D. Due on due Goal Drug Abuse Scree yani Test (DAST-10). Due on due Goal Unhealthy drug use screening due Goal Lifestyle education regardin g diet completed Goal Tobacco Use Screening. Due o n due Goal Obtain Height, Weight, and B MS. Due on due Goal Vitamin B12. Due on due Goal Tobacco screening. Due on due Goal CMP. Due on due Goal Depression screening. Due on due Goal Hepatitis C Screening due Goal Influenza vaccine. Due on due Goal Follow up Plan f or abnormal BMI (Less than 18.5, greater than 25). Due on due Goal Diabetes screening. Due on due Goal CBC. Due on due Goal TSH. Due on due Goal Drug Abuse Scree yani Test (DAST-10). Due on due Goal Generalized Anxi ety Disorder - 7 (AARON-7). Due on due Goal Unhealthy drug use screening due Goal DEXA scan. Due on due Goal Lipid panel. Due on 026 due Goal Vitamin D. Due on due Goal Pneumococcal vaccine due Goal Lifestyle education regardin g diet completed Goal Lipid panel. Due on 025 due Goal Tobacco screening. Due on due Goal Vitamin D. Due on due Goal CMP. Due on due Goal Follow up Plan f or abnormal BMI (Less than 18.5, greater than 25). Due on due Goal Drug Abuse Scree yani Test (DAST-10). Due on due Goal Pneumococcal vaccine due Goal TSH. Due on due Goal Hepatitis C Screening due Goal Generalized Anxi ety Disorder - 7 (AARON-7). Due on due Goal DEXA scan. Due on due Goal Tobacco Use Screening. Due o n due Goal Unhealthy drug use screening due Goal Diabetes screening. Due on due Goal Depression screening. Due on due Goal CBC. Due on due Goal Obtain Height, Weight, and B MS. Due on due Goal Influenza vaccine. Due on due Goal Vitamin B12. Due on due Goal Lipid panel. Due on due Goal Diabetes screening. Due on due Goal Drug Abuse Scree yani Test (DAST-10). Due on due Goal Obtain Height, Weight, and B MS. Due on due Goal CMP. Due on due Goal DEXA scan. Due on due Goal CBC. Due on due Goal Vitamin B12. Due on due Goal Depression screening. Due on due Goal Follow up Plan f or abnormal BMI (Less than 18.5, greater than 25). Due on due Goal Unhealthy drug use screening due Goal Pneumococcal vaccine due Goal Tobacco Use Screening. Due o n due Goal Vitamin D. Due on due Goal Influenza vaccine. Due on due Goal Tobacco screening. Due on due Goal Hepatitis C Screening due Goal TSH. Due on due Goal Generalized Anxi ety Disorder - 7 (AARON-7). Due on due Goal Lifestyle education regardin g diet completed Goal DEXA scan. Due on due Goal TSH. Due on due Goal Vitamin D. Due on due Goal Drug Abuse Scree yani Test (DAST-10). Due on due Goal Pneumococcal vaccine due Goal Tobacco Use Cess ation Counseling. Due on due Goal Depression screening. Due on due Goal Follow up Plan f or abnormal BMI (Less than 18.5, greater than 25). Due on due Goal Unhealthy drug use screening due Goal CMP. Due on due Goal Hepatitis C Screening due Goal Lipid panel. Due on due Goal Generalized Anxi ety Disorder - 7 (AARON-7). Due on due Goal Influenza vaccine. Due on due Goal Tobacco screening. Due on due Goal Diabetes screening. Due on due Goal Vitamin B12. Due on due Goal CBC. Due on due Goal Obtain Height, Weight, and B MS. Due on due Goal Tobacco Use Screening. Due o n due Goal Lipid panel. Due on due Goal TSH. Due on due Goal Pneumococcal vaccine due Goal Drug Abuse Scree yani Test (DAST-10). Due on due Goal Follow up Plan f or abnormal BMI (Less than 18.5, greater than 25). Due on due Goal Tobacco Use Screening. Due o n due Goal Vitamin D. Due on due Goal Vitamin B12. Due on due Goal Depression screening. Due on due Goal Generalized Anxi ety Disorder - 7 (AARON-7). Due on due Goal Unhealthy drug use screening due Goal CMP. Due on due Goal Tobacco Use Cess ation Counseling. Due on due Goal CBC. Due on due Goal DEXA scan. Due on due Goal Tobacco screening. Due on due Goal Obtain Height, Weight, and B MS. Due on due Goal Hepatitis C Screening due Goal Influenza vaccine. Due on due Goal Diabetes screening. Due on due Goal Tobacco Use Screening. Due o n due Goal Drug Abuse Scree yani Test (DAST-10). Due on due Goal Mammogram. Due on due Goal Generalized Anxi ety Disorder - 7 (AARON-7). Due on due Goal Tobacco Use Cess ation Counseling. Due on due Goal Hepatitis C Screening due Goal TSH. Due on due Goal Diabetes screening. Due on due Goal DEXA scan. Due on due Goal Obtain Height, Weight, and B MS. Due on due Goal FOBT. Due on due Goal Unhealthy drug use screening due Goal CMP. Due on due Goal Pneumococcal vaccine due Goal FIT. Due on due Goal Depression screening. Due on due Goal Follow up Plan f or abnormal BMI (Less than 18.5, greater than 25). Due on due Goal Colonoscopy. Due on due Goal Influenza vaccine. Due on due Goal Vitamin D. Due on due Goal CT-Colonography. Due on due Goal Vitamin B12. Due on due Goal CBC. Due on due Goal FIT-DNA. Due on due Goal Lipid panel. Due on due Goal Drug Abuse Scree yani Test (DAST-10). Due on due Goal Obtain Height, Weight, and B MS. Due on due Goal CMP. Due on due Goal Hepatitis C Screening due Goal Vitamin B12. Due on due Goal Follow up Plan f or abnormal BMI (Less than 18.5, greater than 25). Due on due Goal Influenza vaccine. Due on due Goal Generalized Anxi ety Disorder - 7 (AARON-7). Due on due Goal TSH. Due on due Goal CT-Colonography. Due on due Goal Mammogram. Due on due Goal FIT-DNA. Due on due Goal CBC. Due on due Goal Tobacco Use Screening. Due o n due Goal FOBT. Due on due Goal FIT. Due on due Goal Vitamin D. Due on due Goal DEXA scan. Due on due Goal Lipid panel. Due on due Goal Pneumococcal vaccine due Goal Depression screening. Due on due Goal Colonoscopy. Due on due Goal Diabetes screening. Due on due Goal Unhealthy drug use screening due Goal Lifestyle education regardin g diet completed Goal Tobacco Use Screening. Due o n due Goal Lipid panel. Due on due Goal Vitamin B12. Due on due Goal Mammogram. Due on due Goal DEXA scan. Due on due Goal Generalized Anxi ety Disorder - 7 (AARON-7). Due on due Goal Pneumococcal vaccine due Goal CT-Colonography. Due on due Goal Unhealthy drug use screening due Goal TSH. Due on due Goal FOBT. Due on due Goal Influenza vaccine. Due on due Goal Vitamin D. Due on due Goal Colonoscopy. Due on due Goal Follow up Plan f or abnormal BMI (Less than 18.5, greater than 25). Due on due Goal CBC. Due on due Goal Obtain Height, Weight, and B MS. Due on due Goal Diabetes screening. Due on due Goal FIT-DNA. Due on due Goal Hepatitis C Screening due Goal FIT. Due on due Goal Depression screening. Due on due Goal CMP. Due on due Goal Tobacco Use Cess ation Counseling. Due on due Goal Drug Abuse Scree yani Test (DAST-10). Due on due Goal Vitamin D. Due on due Goal Lipid panel. Due on 029 due Goal DEXA scan. Due on due Goal FIT. Due on due Goal CBC. Due on due Goal Generalized Anxi ety Disorder - 7 (AARON-7). Due on due Goal TSH. Due on due Goal Drug Abuse Scree yani Test (DAST-10). Due on due Goal Obtain Height, Weight, and B MS. Due on due Goal CT-Colonography. Due on due Goal Depression screening. Due on due Goal Unhealthy drug use screening due Goal Mammogram. Due on due Goal FIT-DNA. Due on due Goal FOBT. Due on due Goal Follow up Plan f or abnormal BMI (Less than 18.5, greater than 25). Due on due Goal Hepatitis C Screening due Goal Colonoscopy. Due on due Goal CMP. Due on due Goal Tobacco Use Screening. Due o n due Goal Diabetes screening. Due on due Goal Pneumococcal vaccine due Goal Vitamin B12. Due on due Goal Lifestyle education regardin g diet completed Goal CMP. Due on due Goal FIT. Due on due Goal Unhealthy drug use screening due Goal Tobacco Use Screening. Due o n due Goal Vitamin B12. Due on due Goal Depression screening. Due on due Goal Obtain Height, Weight, and B MS. Due on due Goal Mammogram. Due on due Goal CT-Colonography. Due on due Goal CBC. Due on due Goal TSH. Due on due Goal Hepatitis C Screening due Goal Diabetes screening. Due on due Goal Pneumococcal vaccine due Goal Lipid panel. Due on 029 due Goal Generalized Anxi ety Disorder - 7 (AARON-7). Due on due Goal Follow up Plan f or abnormal BMI (Less than 18.5, greater than 25). Due on due Goal Drug Abuse Scree yani Test (DAST-10). Due on due Goal FOBT. Due on due Goal Colonoscopy. Due on due Goal FIT-DNA. Due on due Goal DEXA scan. Due on due Goal Vitamin D. Due on due Goal Lifestyle education regardin g diet completed Goal Lipid panel. Due on due Goal Mammogram. Due on due Goal FOBT. Due on due Goal Pneumococcal vaccine due Goal Diabetes screening. Due on due Goal Hepatitis C Screening due Goal Colonoscopy. Due on due Goal TSH. Due on due Goal Vitamin D. Due on due Goal CMP. Due on due Goal CBC. Due on due Goal DEXA scan. Due on due Goal FIT. Due on due Goal Influenza vaccine. Due on due Goal Depression screening. Due on due Goal Unhealthy drug use screening due Goal Obtain Height, Weight, and B MS. Due on due Goal Follow up Plan f or abnormal BMI (Less than 18.5, greater than 25). Due on due Goal Generalized Anxi ety Disorder - 7 (AARON-7). Due on due Goal CT-Colonography. Due on due Goal Drug Abuse Scree yani Test (DAST-10). Due on due Goal Vitamin B12. Due on 025 due Goal FIT-DNA. Due on due Goal Tobacco Use Screening. Due o n due Goal Lifestyle education regardin g diet completed Goal DEXA scan. Due on due Goal Lipid panel. Due on 029 due Goal Influenza vaccine. Due on due Goal Unhealthy drug use screening due Goal Tobacco Use Cess ation Counseling. Due on due Goal Depression screening. Due on due Goal Generalized Anxi ety Disorder - 7 (AARON-7). Due on due Goal Drug Abuse Scree yani Test (DAST-10). Due on due Goal FOBT. Due on due Goal Colonoscopy. Due on 024 due Goal TSH. Due on due Goal CMP. Due on due Goal Mammogram. Due on due Goal Obtain Height, Weight, and B MS. Due on due Goal Follow up Plan f or abnormal BMI (Less than 18.5, greater than 25). Due on due Goal Hepatitis C Screening due Goal Vitamin D. Due on due Goal Vitamin B12. Due on 025 due Goal FIT. Due on due Goal CBC. Due on due Goal Tobacco Use Screening. Due o n due Goal Diabetes screening. Due on due Goal CT-Colonography. Due on due Goal Pneumococcal vaccine due Goal FIT-DNA. Due on due Goal Lifestyle education regardin g diet completed Goal Obtain Height, Weight, and B MS. Due on due Goal Colonoscopy. Due on 024 due Goal Unhealthy drug use screening due Goal Pneumococcal vaccine due Goal Vitamin D. Due on due Goal Depression screening. Due on due Goal Generalized Anxi ety Disorder - 7 (AARON-7). Due on due Goal Follow up Plan f or abnormal BMI (Less than 18.5, greater than 25). Due on due Goal TSH. Due on due Goal Lipid panel. Due on 029 due Goal Tobacco Use Cess ation Counseling. Due on due Goal FIT-DNA. Due on due Goal Drug Abuse Scree yani Test (DAST-10). Due on due Goal CMP. Due on due Goal FIT. Due on due Goal Diabetes screening. Due on J due Goal Tobacco Use Screening. Due o n due Goal FOBT. Due on due Goal CT-Colonography. Due on due Goal Influenza vaccine. Due on due Goal Vitamin B12. Due on 025 due Goal Hepatitis C Screening due Goal CBC. Due on due Goal Lifestyle education regardin g diet completed Goal Drug Abuse Scree yani Test (DAST-10). Due on due Goal FOBT. Due on due Goal Tobacco Use Screening. Due o n due Goal Follow up Plan f or abnormal BMI (Less than 18.5, greater than 25). Due on due Goal Pneumococcal vaccine due Goal FIT. Due on due Goal FIT-DNA. Due on due Goal Vitamin D. Due on 5 due Goal Depression screening. Due on due Goal TSH. Due on due Goal Lipid panel. Due on 029 due Goal CMP. Due on due Goal Mammogram. Due on 4 due Goal Generalized Anxi ety Disorder - 7 (AARON-7). Due on due Goal Obtain Height, Weight, and B MS. Due on due Goal Vitamin B12. Due on due Goal Influenza vaccine. Due on due Goal Diabetes screening. Due on due Goal CBC. Due on due Goal Unhealthy drug use screening due Goal CT-Colonography. Due on due Goal Hepatitis C Screening due Goal DEXA scan. Due on due Goal Colonoscopy. Due on due Goal Lifestyle education regardin g diet completed Goal Follow up Plan f or abnormal BMI (Less than 18.5, greater than 25). Due on due Goal Obtain Height, Weight, and B MS. Due on due Goal DEXA scan. Due on due Goal Drug Abuse Scree yani Test (DAST-10). Due on due Goal FIT. Due on due Goal Influenza vaccine. Due on due Goal TSH. Due on due Goal Lipid panel. Due on due Goal CMP. Due on due Goal Pneumococcal vaccine due Goal CT-Colonography. Due on due Goal Vitamin D. Due on due Goal Vitamin B12. Due on due Goal Generalized Anxi ety Disorder - 7 (AARON-7). Due on due Goal FIT-DNA. Due on due Goal Colonoscopy. Due on 024 due Goal FOBT. Due on due Goal Depression screening. Due on due Goal Unhealthy drug use screening due Goal CBC. Due on due Goal Tobacco Use Screening. Due o n due Goal Diabetes screening. Due on J due Goal Hepatitis C Screening due Goal Lifestyle education regardin g diet completed Referral Referred To: [facility] Ordered: Referrals: Cigarette Package Examiner. [facility]. Location: [place]. Evaluate and treat Appointment date/timeframe: 2 Weeks ordered Referral Referred To: [facility] Ordered: Referrals: Gastroenterology. [facility]. Location: [place]. Diagnostic testing Appointment date/timeframe: 04/10/2024 ordered Referral Referred To: [facility] Ordered: Referrals: Pulmonology. [facility]. Location: [place] or [place]. Diagnostic testing Appointment date/timeframe: 10/11/2023 ordered Referral Referred To: [facility] Ordered: Referrals: [facility] Appointment date/timeframe: 1 Week ordered Referral Ordered: DXA BONE DENSITY, AXIAL Bilateral body Appointment date/timeframe: 1 Month ordered Referral Ordered: [facility] MAMMO BI INCL CAD Bilateral breast Appointment date/timeframe: 09/10/2023 ordered Appointment Alena Samuel - Labs BOOKE D History Of Present Illness Encounter Date Complaint History Of Prese nt Illness Fasting Labs Pt is here today to have fasting labs collected. 1x attempt in right ac with butterfly needle. Successfully collected 3 tubes, pt tolerated well, gauze and coban applied, pt instructed to remove in 5-10 minutes, pt voiced understanding. Pt is scheduled to rtc in 2 weeks to follow up on lab results. PPD Pt is here today to have a TB skin test completed per her request. Administered ppd into left forearm. Pt signed permission for ppd and instructed to rtc in 48 hours to have injection site read. Pt voiced understanding. Sore Throat Onset: 2 Days. T he severity of the problem is moderate. The problem has worsened. Associated symptoms include cough (non-productive), fever and pharyngitis. follow up on labs Alena is here today for f/u on recent labs.Overall labs are wnlA1c 5.3 CBC,CMP, TSH all wnlLDL slight elelvation [id number] 325, folic acid 11.1Vit D 32.7She voices no complaints todayRepeat labs in 6 monthsAsthma controlled- using maintenance inhaler correctly Fasting Labs Pt is here today to have fasting labs collected. 1x attempt in right ac with butterfly needle. Successfully collected 3 tubes, pt tolerated well, gauze and coban applied, pt instructed to remove in 5-10 minutes, pt voiced understanding. Pt is scheduled to rtc in 2 weeks to follow up on lab results. Cough/congestion Alena is here t yessneia for cough and congestion that began 2 days ago.She reports wheezing.denies fevertook 1 albuterol nebulized treatment SaturdayDiscussed the importance of taking treatments every 4 hrs when she has asthmatic flare.She voiced understanding1 treatment given in officeimprove air movement post treatmentDeop 80 injectionRocephin 1 gram IMRTC 1 week if not improved as expected. Prajeferson Rondon complete d 08/10/24. -GIANA GREGORY Depression Screening Depression screening completed 08/10/24. Pt scored 0, provider aware. -GIANA GREGORY Labs Alena is here to day to repeat her THC level. Successfully collected 1 tube. Pt tolerated well. Pt is scheduled to rtc in 1 week to follow up on lab results. FLU VACCINE ALENA IS HERE TO DAY TO RECEIVE A FLU VACCINE. ADMINISTERED INFLUENZA AFLURIA, LOT# [id number], EXP 09.05., INTO LEFT DELTOID. PT TOLERATED WELL, BAND AID APPLIED. CONENT SIGNED AND SCANNED TO CHART.PT IS GOING TO GO TO HER PHARMACY AND SEE ABOUT GETTING A PNEUMONIA AND SHINGLES VACCINE BOWL ISSUES Alena has been e xperiencing abdominal pain and diarrhea since January 2023.She is a 73 yo femaleDiarrhea episodes are once every 2-3 days and it is 3-4 times that day. Watery diarrhea.Constipation other times.No fever or chillsNo specific food sources or irritantslower abdominal pain on days with diarrhea- lower sharp, twisting painhx of cholycycstectomy.-years agoCheese causes constipation TB skin test Alena is here to day for TB skin test for medicare requirement follow up on asthma Alena is a [age] yo female here today for f/u on asthma.She has had several respiratory illnesses over the course of winter, that has kept her sick. She had influenza earlier this year.Today she is doing much better.Compliant with medicationsUsing rescue inhaler/ breathing treatments- has only used twiceOn montelukast.Started on symbicort in July- doing well.Dx of Asthma since We had discusses a pulmonary function test to establish a baseline. cough/fever Alena is here to day as follow up instructions from yesterday. She came to the office to report she was still coughing with bronchitis like flare, had fever and chills the day before. Felling ran down. She has been dealing with this for about 1 month. 2 weeks ago she also had a stomach bug that she had nausea and vomiting/diarrhea. This has resolved. Due to her ashtma and the longevity of her illness. She would benefit from a home nebulizer machine to administer a rescue breathing treatment.She did start her prednisone last night as well as doxycyclineO2 is 95% todayXochilt is breathing better than yesterday COUGH/CONGESTION ALENA is a 73 y o female here for an acute visit for cough, possible bronchitis.She does have hx of asthma and allergies.This began , yesterday began wheezing.Denies fever/chillsfor the past 4 months she has 3 sick visit each month except MarchShe did have Influenza A in May.She has not been on a maintenance inhaler for her asthma, which she reported prior starting care here had been controlled.PFT may be helpful to establish baseline in the future.I am starting symbicort to see if we can get better controlRSV and covid testing neg here today. sciatic pain Alena is here to day as an acute walk in patient. She had called earlier this morning, but I had not had a chance to call her back. She states she has left sciatic pain that began 4 days ago. She has not been able to sleep r/t to pain. Laying flat makes pain worse. She states she was washing dishes and sneezed. She reports she has not had a flare in 4 to 5 years. Denies numbness/tingling. Denies incontinence of urine or stool. SORE THROAT Onset: 1 Day. Th e severity of the problem is mild. The problem has worsened. The symptoms are persistent. Symptoms are associated with history of allergies and history of asthma. Symptoms are not associated with dental infection and recent cold. Context additional comments: recent dx of flu A 2 weeks ago. Aggravating factors include allergens and cold air. Symptoms are not relieved by antihistamines or decongestants. Associated symptoms include cough and pharyngitis. Pertinent negatives include chills/rigors, fatigue or fever. follow up labs Alena is a 73 yo female here today for f/u on recent labs. Over all labs okvit d 27Total cholesterol 210, LDL 111, HDL 79 and trigs 92.She reports that she had Flu A 2 weeks agoShe states that she is ok nowno other complaints at this timedid have flu vaccinedue for dexa scanhx of asthma New to establish New to establis hHeart dysrhthmia -possibly svt or a-fib- states she could cough and it would go back to normal- racing heart ratebisoprolol 5 mg dailyNo problemsDenies HTNThyroid (hypothyroidism)out of medication x 1 monthHot flashes and exhaustionSeasonal allergiesAsthma when younger childno controller medicationsno cough/wheeze todaydoes have a rescue inhaler- uses maybe six times yearlymontelukast and loratidineColonoscopy 30 years agodenies problemsfit card given todayMammogram- [facility] made todayrecords [id number] years ago- [facility] worksNormal per pt reportDeclines to have oneflu vaccine to be given at next appointmentCovid booster recommended in 1 monthTdap, Pna20, and shingles vaccines also recommended Instructions Date Instruction Additional Infor cara Patient counseled on doing warm salt water gargles, completing any and all medications prescribed, may use OTC analgesics as needed. Related to Acute pharyngitis, unspecified Use your maintainenc e inhaler daily as instructed. Always rinse your mouth out with water after each use. Monitor for thrush infections. Identify asthma triggers and avoid them. Monitor for worsening of symptoms. Related to Asthma Giving encouragement to exercise Related to Body mass index [BMI] 29.0-29.9, adult Lifestyle education regarding di et Related to Body mass index [BMI] 29.0-29.9, adult Low fat, low cholest myla diet. Avoid fatty, fried, and greasy foods. Physical activity as tolerated. Counseled on risks of associated comorbidities, such as heart disease and stroke. Encouraged avoidance of tobacco products. Related to Hyperlipidemia Use your maintainenc e inhaler daily as instructed. Always rinse your mouth out with water after each use. Monitor for thrush infections. Identify asthma triggers and avoid them. Monitor for worsening of symptoms. Related to Asthma Take medication delma y at the same time, and on an empty stomach. Get adequate rest daily and 30 minutes of moderate exercise most days of the week. Related to Hypothyroidism, unspecified Giving encouragement to exercise Related to Body mass index [BMI] 30.0-30.9, adult Lifestyle education regarding di et Related to Body mass index [BMI] 30.0-30.9, adult Cover your mouth whe n coughing, cough into your elbow. Place cough drops in the freezer to cool and soothe throat. Wear a mask when in public or near people. May use 1 tsp of honey every 4 hrs as needed for cough. Related to Cough Identify asthma trig gers and avoid them. Monitor for worsening of symptoms.Use your rescue inhaler/nebulizer as needed for cough or wheeze per instructions. Related to Acute upper respiratory infection, unspecified Patient counseled on doing warm salt water gargles, completing any and all medications prescribed, may use OTC analgesics as needed. Related to Acute pharyngitis, unspecified Giving encouragement to exercise Related to Obesity, unspecified Lifestyle education regarding di et Related to Obesity, unspecified Physical activity as tolerated. Try to engage in some form of moderate physical activity for 30 minutes most days of the week. May modify activity as needed to reduce discomfort. Try to achieve/maintain a healthy body weight to reduce strain on musculoskeletal system. Verbalizes an understanding. Related to Body mass index [BMI] 31.0-31.9, adult Drink plenty of flui ds for the next 48 hours to remain hydrated. If symptoms continue past 48 hours, please return to office for further evaluation. Practice good hand washing.Please bring back stool studies.Labs todayschedule colonoscopy. Eat a high fiber diet. Decrease stress when able. Increase the amount of water you consume, at least 8 8 oz. glasses daily. Exercise daily 3-5 times weekly. Avoid gaseous causing foods, avoid fried, greasy fatty foods, avoid dairy. Related to Diarrhea Giving encouragement to exercise Related to Body mass index [BMI] 31.0-31.9, adult Lifestyle education regarding di et Related to Body mass index [BMI] 31.0-31.9, adult Use your maintainenc e inhaler daily as instructed. Always rinse your mouth out with water after each use. Monitor for thrush infections. Identify asthma triggers and avoid them. Monitor for worsening of symptoms. Related to Asthma Use your maintainenc e inhaler daily as instructed. Always rinse your mouth out with water after each use. Monitor for thrush infections. Identify asthma triggers and avoid them. Monitor for worsening of symptoms. Related to Body mass index [BMI] 32.0-32.9, adult Giving encouragement to exercise Related to Body mass index [BMI] 32.0-32.9, adult Lifestyle education regarding di et Related to Body mass index [BMI] 32.0-32.9, adult Use your maintainenc e inhaler daily as instructed. Always rinse your mouth out with water after each use. Monitor for thrush infections. Identify asthma triggers and avoid them. Monitor for worsening of symptoms. Related to Asthma Take rest. Drink ple nty of fluids. Uses saline sinus rinses. Use prescription and/or OTC medications for symptom relief as instructed. RTC for worsening URI symptoms. If develops high and/or persistent fever, chills, shortness of breath, severe cough, will need urgent evaluation. Verbalizes an understanding. Related to Acute upper respiratory infection, unspecified Giving encouragement to exercise Related to Body mass index [BMI] 32.0-32.9, adult Lifestyle education regarding di et Related to Body mass index [BMI] 32.0-32.9, adult Drink plenty of flui ds. Use nasal saline rinses. Nasal steroid spray if tolerated. Antihistamines as needed. Avoid allergy triggers when possible. Related to Other seasonal allergic rhinitis Use your maintainenc e inhaler daily as instructed. Always rinse your mouth out with water after each use. Monitor for thrush infections. Identify asthma triggers and avoid them. Monitor for worsening of symptoms. Related to Asthma Giving encouragement to exercise Related to Body mass index [BMI] 32.0-32.9, adult Lifestyle education regarding di et Related to Body mass index [BMI] 32.0-32.9, adult Physical activity as tolerated. Try to engage in some form of moderate physical activity for 30 minutes most days of the week. May modify activity as needed to reduce discomfort. Try to achieve/maintain a healthy body weight to reduce strain on musculoskeletal system. Verbalizes an understanding. Related to Body mass index [BMI] 32.0-32.9, adult Patient instructed o n appropriate use of medications prescribed for back pain. Discussed conservative measures such as heat, ice, gentle strength stretching, and core muscle strengthening. Avoid heavy lifting, pulling, or tugging. Contact the clinic if any worsening or new symptoms related to back pain occur. Related to Sciatica, left side Giving encouragement to exercise Related to Body mass index [BMI] 32.0-32.9, adult Lifestyle education regarding di et Related to Body mass index [BMI] 32.0-32.9, adult Physical activity as tolerated. Try to engage in some form of moderate physical activity for 30 minutes most days of the week. May modify activity as needed to reduce discomfort. Try to achieve/maintain a healthy body weight to reduce strain on musculoskeletal system. Verbalizes an understanding. Related to Body mass index [BMI] 32.0-32.9, adult Drink plenty of flui ds. Take rest. Monitor oxygen saturation and heart rate. Go to the ER if resting oxygen saturation stays below 88%, or if any AMS, worsening dyspnea, chest pain, or other concerning symptoms. Verbalizes an understanding of all. Related to COVID-19 Clear liquid diet, a dvance as tolerated. Take any medications as instructed. Drink plenty of fluids. If symptoms worsen, or if urine output becomes diminished, go to the ER for evaluation. Verbalizes an understanding Related to Nausea Patient counseled on doing warm salt water gargles, completing any and all medications prescribed, may use OTC analgesics as needed. Related to Sore throat Lifestyle education regarding di et Related to Body mass index [BMI] 32.0-32.9, adult Giving encouragement to exercise Related to Body mass index [BMI] 32.0-32.9, adult Low fat, low cholest myla diet. Avoid fatty, fried, and greasy foods. Physical activity as tolerated. Counseled on risks of associated comorbidities, such as heart disease and stroke. Encouraged avoidance of tobacco products. Related to Hyperlipidemia Take medication delma y at the same time, and on an empty stomach. Get adequate rest daily and 30 minutes of moderate exercise most days of the week. Related to Hypothyroidism, unspecified Giving encouragement to exercise Related to Body mass index [BMI] 32.0-32.9, adult Lifestyle education regarding di et Related to Body mass index [BMI] 32.0-32.9, adult Continue Bisoprolol F/u w/ cardiology as scheduled Related to A fib Drink plenty of flui ds. Use nasal saline rinses. Nasal steroid spray if tolerated. Antihistamines as needed. Avoid allergy triggers when possible. Related to Other seasonal allergic rhinitis Use your maintainenc e inhaler daily as instructed. Always rinse your mouth out with water after each use. Monitor for thrush infections. Identify asthma triggers and avoid them. Monitor for worsening of symptoms. Related to Asthma Take medication delma y at the same time, and on an empty stomach. Get adequate rest daily and 30 minutes of moderate exercise most days of the week. Related to Hypothyroidism, unspecified Giving encouragement to exercise Related to Body mass index [BMI] 33.0-33.9, adult Lifestyle education regarding di et Related to Body mass index [BMI] 33.0-33.9, adult Assessments Type Assessment Date assessment Hypothyroidism, unspecified
--- NOTE | 2025-03-14 11:17 | XR_ITS ---
PROCEDURE INFORMATION: Exam: XR Chest Exam date and time: 03/14/2025 11:30 AM Age: 75 years old Clinical indication: Shortness of breath; Additional info: Cp SOA TECHNIQUE: Imaging protocol: Radiologic exam of the chest. Views: 1 view. Total images: 1 COMPARISON: CR SHOULDCMRT XR shoulder RT min 2V 07/14/2018 11:00 AM FINDINGS: Lungs: Atelectatic and/or early infiltrative changes noted within the right lower lobe. Atelectatic changes left lung base. Granulomatous densities noted within the left upper lobe. Pleural spaces: No pleural effusion. No pneumothorax. Heart/Mediastinum: Heart demonstrates mild diffuse enlargement. Vasculature: Mild atherosclerotic disease. Bones/joints: Rightward curvature of the thoracic spine with mild degenerative changes. IMPRESSION: 1. Mild cardiomegaly. 2. Atelectatic and/or early infiltrative changes noted within the right lower lobe. 3. Atelectatic changes left lung base.
--- NOTE | 2025-03-14 11:17 | ECG_ITS ---
APPROVED REPORT Exam: Resting ECG HR:81 bpm ECG Measurements Heart Rate 81 AXES SC 190 P 65 QRSd 98 QRS 14 QT 344 T 71 QTc 381 Conclusion SINUS RHYTHM LOW QRS VOLTAGE IN PRECORDIAL LEADS [QRS DEFLECTION < 1.0 mV IN CHEST LEADS] ANTEROSEPTAL MYOCARDIAL INFARCTION , PROBABLY OLD [40+ ms Q WAVE IN V1-V4] ABNORMAL ECG No STEMI Electronically signed by : PIPO VELA, 03/18/2025 03:05:19
--- NOTE | 2025-03-14 11:18 | ED_ITS ---
<Statement entered by Gregorio Bolton MD - 03/14/25 14:18> I was consulted by the PRAVEENA, and we discusssed the complexity of the problems being adressed. I approved the treatment and management plan for this patient's care in the Emergency Department, thus performing a substantive portion of the medical decision making. Gregorio Bolton MD Discharge Plan Disposition Patient Disposition: Home, Self-Care Prescriptions Prescriptions: No Action flecainide 50 mg tablet 50 mg PO azithromycin 250 mg tablet See Rx Instructions PO .COMPLEX Qty: 6 0RF Rx Instructions: For 250 mg dose pack: take 500 mg today (day 1), then 250 mg for 4 days (days 2-5) PO benzonatate 100 mg capsule 100 mg PO TID PRN (Reason: cough) Qty: 30 0RF methylprednisolone [Medrol (Paresh)] 4 mg tablets,dose pack See Rx Instructions PO PER PKG DIR Qty: 21 0RF Rx Instructions: PO PER PKG DIR for 6 days bisoprolol fumarate 5 mg tablet 5 mg PO DAILY levothyroxine 125 mcg Tablet 125 mcg PO DAILY montelukast 10 mg tablet 10 mg PO DAILY fluticasone propionate [Flonase Allergy Relief] 50 mcg/actuation spray,suspension 1 - 2 spray intranasal DAILY Qty: 16 0RF Rx Instructions: administer into each nostril Referrals Follow up/Referrals: Casimiro Carpenter MD [Primary Care Provider, Medical] - See instructions Activity Restrictions/Add. Instructions Additional Instructions/Restrictions: Today you were evaluated in the ED for shortness of breath. You are positive for COVID, you can not take Poxlovid due to interaction with flecainide. Please rest, increase fluid intake, take acetaminophen and follow up with PCP within 7 days. Please return to ED for worsening of condition. Clinical Impressions Clinical Impression: COVID, Fatigue Instructions Patient Instructions: DI for Shortness of Breath Print Language Print Language: Croatian Discharge ED Provider: Gregorio Bolton HPI General Chief Complaint: Shortness of Breath/Dyspnea Stated Complaint: fever, weakness, SOA Time Seen by Provider: 03/14/25 11:03 History of Present Illness HPI narrative: patient is a 75-year-old female PMHx palpitations (flecainide) who presents to the ED for complaints of shortness of breath and generalized fatigue. Patient states she was recently diagnosed with bronchitis within the past 2 weeks, has completed a course of Z-Paresh and steroid pack without relief of symptoms. Related Data Home Medications ?Medication ?Instructions ?Recorded ?Confirmed bisoprolol fumarate 5 mg tablet 5 mg PO DAILY . 02/26/25 levothyroxine 125 mcg tablet 125 mcg PO DAILY Suppleme nt 11/17/22 02/26/25 montelukast 10 mg tablet 10 mg PO DAILY Allergy Sympt oms 11/17/22 02/26/25 flecainide 50 mg tablet 50 mg PO 07/05/24 02/26/25 Previous Rx's ?Medication ?Instructions ?Recorded fluticasone propionate 50 1 - 2 spray intranasal DAILY #16 11/25/22 mcg/actuation nasal grams spray,suspension (Flonase Allergy Relief) azithromycin 250 mg tablet See Rx Instructions PO .COM PLEX #6 02/26/25 tabs benzonatate 100 mg capsule 100 mg PO TID PRN cough #30 caps 02/26/25 methylprednisolone 4 mg tablets in See Rx Instructions PO PER PKG DIR 02/26/25 a dose pack (Medrol (Paresh)) #21 tabs Allergies Allergy/AdvReac Type Severity Reaction Status Date / Time iodine Allergy Anaphylaxis Verified 02/26/25 11:24 [facility] Disclaimer: The information contained in this section may have been updated after the patient was seen, as this information can be updated by other users. Medical History (Updated 03/14/25 @ 12:39 by Juani Moeller APRN) Bronchitis Thyroid disease Asthma Surgical History History of cholecystectomy Family History Family/Other No significant family history Social History Smoking Status: Never smoker alcohol intake: never current occupational status: retired Travel in the last 8 weeks?: None Have you lived/traveled outside US in past 30 days?: No Contact w/someone who lives/traveled outside US past 30 days?: No Exposure to someone with infectious disease in past 14 days?: No Do you have a fever (greater than 100.4 F or 38 C)?: No Have you tested positive for COVID-19?: No Exposed to someone with COVID-19 in past 14 days?: No Do you have a sore throat?: No Do you have a cough?: No Do you have any weakness?: Yes Do you have any diarrhea?: No Are you experiencing any unusual bleeding?: No Do you have any muscle aches/pain?: Yes Do you have any abdominal pain?: No Are you experiencing loss of taste or smell?: No ROS Obtained: Yes Systems reviewed as appropriate & no additional complaints except as documented Physical Exam General General appearance: alert Head Head exam: atraumatic Eye Eye exam: Present PERRL Neck Neck exam: Present normal inspection Chest Chest inspection: Present normal inspection Respiratory Respiratory exam: Present other (Tachypnea) Cardiovascular Cardiovascular exam: Present regular rate Abdominal Exam Abdominal exam: Present soft Extremities Exam Extremities exam: Present full ROM Back Exam Back exam: Present normal inspection Neurological Exam Neurological exam: Present alert and oriented X3 Psychiatric Psychiatric exam: Present normal affect Skin Skin exam: Present dry HEART Score HEART Score HEART Score assessment performed?: Yes History (anamnesis): Slightly suspicious ECG: Normal Age: >65 years Risk factors: No known risk factors Troponin: </= normal limit HEART Score: 2 Critical Care Critical Care Time Critical Care Time: No Medical Decision Making Octaviano Inquiry Pt receiving controlled substance: No Vital Signs Vital Signs: 03/14/25 11:24 03/14/25 11:44 03/14/25 12:00 Temperature 99.4 F Temperature Source Oral Pulse Rate 90 84 Pulse Rate [Right Radial] 80 Respiratory Rate 19 19 25 H Blood Pressure 120/89 122/70 Blood Pressure [Right Arm] 128/71 Blood Pressure Mean [Right Arm] 90 Blood Pressure Source Blood Pressure Source [Right Arm] Automatic Cuff Blood Pressure Position Blood Pressure Position [Right Arm] Sitting 02 Sat by Pulse Oximetry 98 97 91 L Oxygen Delivery Method Room Air Room Air 03/14/25 12:30 03/14/25 12:45 Temperature 99.2 F Temperature Source Oral Pulse Rate 81 77 Pulse Rate [Right Radial] Respiratory Rate 19 16 Blood Pressure 111/69 130/80 Blood Pressure [Right Arm] Blood Pressure Mean [Right Arm] Blood Pressure Source Automatic Cuff Blood Pressure Source [Right Arm] Blood Pressure Position Supine Blood Pressure Position [Right Arm] 02 Sat by Pulse Oximetry 93 L Oxygen Delivery Method Room Air Room Air Lab Data Labs: Lab Results 03/14/25 11:20: WBC 8.2, RBC 4.47, Hgb 13.3, Hct 38.9, MCV 87.0, MCH 29.8, MCHC 34.2, RDW 13.2, Plt Count 237, MPV 9.4, Neut % (Auto) 83.1 H, Lymph % (Auto) 6.8 L, Pine % (Auto) 8.8, Eos % (Auto) 0.4, Baso % (Auto) 0.5, Neut # (Auto) 6.8, L ymph # (Auto) 0.6 L, Pine # (Auto) 0.7, Eos # (Auto) 0.0, Baso # (Auto) 0.0, PT 10.5, INR 0.94, APTT 23.5, D-Dimer 0.69 H, Sodium 130 L, Potassium 3.8, Chloride 101, Carbon Dioxide 23, Anion Gap 9.8, BUN 18 H, Creatinine 0.80, Estimated Creat Clear 70, Estimated GFR 70, Est GFR ( Amer) 85, Glucose 110 H, Calcium 9.5, Magnesium 1.8, Total Bilirubin 0.7, AST 28, ALT 28, Alkaline Phosphatase 83, Troponin I < 0.01, Total Protein 7.8, Albumin 4.5, Globulin 3.3 H, Albumin/Globulin Ratio 1.4, SARS-CoV-2 (PCR) Detected A, HCV Ab YAJAIRA w/Rflx PCR Qn Negative, HIV Ag/Ab Combo Qual Negative, Influenza A Untype (PCR) Not detected, Influenza Type B (PCR) Not detected 03/14/25 11:32: VBG pH 7.46 H, VBG pCO2 34.5 L, VBG pO2 25.5 L, VBG HCO3 23.8, VBG Total CO2 24.8, VBG O2 Saturation 55.0, VBG Base Excess -0.1, VBG Lactic Acid 1.3 03/14/25 11:45: Urine Color Yellow, Urine Appearance Clear, Urine pH 8.5, Ur Specific Placedo 1.025, Urine Protein Trace, Urine Glucose (UA) Negative, Urine Ketones 1+, Urine Blood Negative, Urine Nitrate Negative, Urine Bilirubin Negative, Urine Urobilinogen 1.0, Ur Leukocyte Esterase Negative, Urine RBC None, Urine WBC None, Ur Squamous Epith Cells Occasional, Urine Bacteria None 03/14/25 11:20 03/14/25 11:20 Response Orders (Tests/Meds): ED MEDICATIONS Discontinued Medications Generic Name Dose Route Start Last Admin Trade Name Tammy PRN Reason Stop Dose Admin Ondansetron HCl 4 mg 03/14/25 12:03 03/14/25 12:09 Ondansetron 4mg/2ml Vial IV 03/14/25 12:04 4 mg ONCE ONE Administration ORDERS Category Date Time Status CXR --portable [XR chest portable] Stat Exams 03/14/25 11:17 Completed CBC w/Auto Diff [Complete Blood Count Auto Diff] Stat Lab 03/14/25 11:20 Completed CMP [Comprehensive Metabolic Panel] Stat Lab 03/14/25 11:20 Completed D-Dimer Stat Lab 03/14/25 11:20 Completed HIV Combo Stat Lab 03/14/25 11:20 Completed Hepatitis C Ab Qual. W/ RFX Stat Lab 03/14/25 11:20 Completed Magnesium Stat Lab 03/14/25 11:20 Completed PT/PTT Stat Lab 03/14/25 11:20 Completed Rapid PCR Covid and Flu A/B Stat Lab 03/14/25 11:20 Completed Trop I [Troponin I] Stat Lab 03/14/25 11:20 Completed Urinalysis and Microscopic Stat Lab 03/14/25 11:45 Completed VBG [Venous Blood Gas] Stat RT 03/14/25 11:32 Completed MDM Narrative Medical Decision Narrative: In summary, patient is a 75-year-old female PMHx palpitations (flecainide) who presents to the ED for complaints of shortness of breath and generalized fatigue. Patient states she was recently diagnosed with bronchitis within the past 2-3 weeks, has completed a course of Z-Paresh and steroid pack without relief of symptoms. Patient states last night she started taking leftover Levaquin that was prescribed to her . She states she is here in the ED today due to increasing shortness of breath and generalized fatigue over the past 24 hours. Patient states she feels that she has a fever at home. Denies headache, visual changes, neck pain, chest pain, abd pain, nausea. Diff dx ACS, PE, PNA, covid, influenza, other infectious process. Upon initial evaluation, patient is A&O, stable, mild tachypnea, lung sounds normal. Discussed with patient we will proceed with labs, ekg, cxr. CBC unremarkable for leukocytosis, stable H&H. CMP overall unremarkable. Troponin < 0.01. D-dimer elevated at 0.69, age-adjusted dimer will be 0.73. COVID-positive. Chest x-ray unremarkable for pneumonia. Upon reassessment, patient's condition has improved. She is no longer tachypneic. Remains hemodynamically stable. Discussed with patient that she is COVID-positive, will need to rest, increase fluid intake, take Tylenol, follow- up with PCP within 1 week. We discussed very strict return precautions to the ED. Patient is requesting Paxlovid however there is contraindication with her flecainide that she is currently taking. I explained this to the patient. Patient and spouse verbalized understanding, patient discharged home in the care of spouse.
[2025-03-14 11:24] VITALS: BP 128/71; PULSE 80; RESP 19; TEMP 37.4; O2SAT 98; BMI 29.6
--- OUTSIDE RECORDS SUMMARY | 2025-03-14 11:26 | XMS_ITS | Clinical Summary ---
Author Organization [facility] Address [address] [place] [address] Care Team Providers Care Study Lead Name Role Phone Rosette Wilson APRN Primary Care Provider [phone] Allergies Active Allergy Reactions Criticality Noted Date Comments Iodine Other (See Comments) High 08/01/2016 deathly sick Medications levothyroxine sodium (TIROSINT) 125 MCG capsule capsule Take 1 capsule by mouth Daily. Active montelukast (SINGULAIR) 10 MG tablet Take 1 tablet by mouth Every Night. Active loratadine (CLARITIN) 10 MG tablet Take 1 tablet by mouth Daily. Active albuterol sulfate HFA 108 (90 Base) MCG/ACT inhaler 02/15/2023 Act arsenio Breyna 160-4.5 MCG/ACT inhaler 09/17/2023 Act arsenio flecainide (TAMBOCOR) 50 MG tablet Take 1 tablet by mouth Daily. Patient may take one extra dose PRN for palpitations . 135 tablet 3 11/30/2024 Active Active Problems Problem Noted Date Diagnosed Date Burning sensation of feet 08/10/2019 Pain in both feet 08/10/2019 Plantar fasciitis 09/29/2018 Osteoarthritis of ankle or foot 02/05/2018 Acquired metatarsus varus of left foot 8 Venous stasis 02/05/2018 Palpitations 08/01/2016 Encounters Date Type Department Care Team Description 02/08/2025 Telephone [facility] [address] [place] [phone] Elvi Pandey MD from Last 3 Months Family History Medical History Relation Name Comments COPD Brother 1 Ramirez Serna Diabetes Brother 1 Ramirez Serna Heart disease Brother 1 Ramirez Serna My parents are and have been since i was a child Alcohol abuse Mother Breast cancer Neg Hx Ovarian cancer Neg Hx Relation Name Status Comments Brother 1 Ramirez Serna Alive CABG Brother 2 Alive Father Mother Social History Tobacco Use Types Packs/Day Years Used Date Smoking Tobacco: Never Smokeless Tobacco: Never Tobacco Cessation:Counseling Given: Not Answered Alcohol Use Standard Drinks/Week Comments Not Currently 0 (1 standard drink = 0.6 oz pur e alcohol) rarely Comments No Sex and Gender Information Value Date Recorded Sex Assigned at Not on file Legal Sex Female 11:49 AM EDT Gender Identity Not on file Sexual Orientation Not on file Last Filed Vital Signs Vital Sign Reading Time Taken Comments Blood Pressure 114/68 07/01/2024 2:31 PM EDT Pulse 80 07/01/2024 2:31 PM EDT Temperature - - Respiratory Rate - - Oxygen Saturation 98% 07/01/2024 2:31 PM EDT Inhaled Oxygen Concentration - - Weight 91.6 kg (202 lb) 07/01/2024 2:31 PM EDT Height 172.7 cm (5' 8 ) 07/01/2024 2:31 PM EDT Body Mass Index 30.71 07/01/2024 2:31 PM EDT Plan of Treatment Upcoming Encounters Date Type Department Care Team (Late st Contact Info) Description 05/19/2025 2:30 PM EST Office Visit [facility] [address] [place] [address] Elvi Pandey MD [address] [place] [address] Health Maintenance Due Date Last Done Comments DXA SCAN 1952 COLOGUARD 01/14/1997 COLON CANCER SCREENING 5 YEA R SIGMOIDOSCOPY 01/14/1997 COLONOSCOPY 01/14/1997 COLORECTAL CANCER SCREENING 01/14/1997 CT COLONOGRAPHY 01/14/1997 FECAL OCCULT BLOOD TEST 01/14/1997 FIT Testing (1 year) 01/14/1997 ZOSTER VACCINE (1 of 2) 01/14/2002 ANNUAL WELLNESS VISIT 07/26/2016 HEPATITIS C SCREENING 07/26/2016 Pneumococcal Vaccine 50+ (2 of 2 - PPSV23, PCV20, or PCV21) 03/19/2017 01/22/2017 INFLUENZA VACCINE 11/06/2024 01/31/2024, , 01/12/2021, Additional history exists COVID-19 Vaccine (3 - 2024-2 6 season) 2024 02/02/2021, 07/08/2020 MAMMOGRAM 09/11/2025 09/12/2023, 06/07/2023, 03/04/2017 TDAP/TD VACCINES (2 - Td or Tdap) 01/22/2027 017 Procedures Procedure Name Priority Date/Time Associated Diagnosis Comments MAMMO SCREENING DIGITAL TOMOSYNTHESIS BILATERAL W CAD Routine 09/10/2023 8:25 AM EDT Encounter for screening mammogram for malignant neoplasm of breast from Last 3 Months or Most Recently Relevant to Health Maintenance Results * Mammo Screening Digital Tomosynthesis Bilateral With CAD (09/10/2023 8:25 AM EDT) Anatomical Region Laterality Modality Breast N/A Mammography 09/12/2023 9:06 AM EDT Impressions 09/12/2023 9:08 AM EDT Negative bilateral mammogram. RECOMMENDATION: Continue annual screening mammography. BI-RADS CATEGORY 1, NEGATIVE. CAD was utilized. The standard false-negative rate of mammography is between 10% and 25%. Complex patterns or increased breast density will markedly elevate the false-negative rate of mammography. A letter, in lay terminology, with the results of this exam will be mailed to the patient. This report was finalized on 09/12/2023 9:[address] Alireza Casillas MD. Narrative 09/12/2023 9:08 AM EDT DIGITAL SCREENING MAMMOGRAM WITH TOMOSYNTHESIS HISTORY: Screening Mammography. Low dose full field digital breast tomosynthesis imaging was performed with 2D and 3D acquisitions consisting of bilateral CC and MLO views. Examination is compared to prior examination dating back to 03/04/2017. Examination is read in conjunction with computer aided detection. FINDINGS: There are scattered areas of fibroglandular density. No suspicious masses, microcalcifications or areas of architectural distortion are present. Rosette Wilson APRN IM MAMMOGRAPHY ORDERABLES Final Result from Last 3 Months or Most Recently Relevant to Health Maintenance [place] [address] [place] [address] MEDICARE ADVANTAGE HMO Care Teams Study Lead Relationship Specialty Start Date End Date Rosette [place] [address] PCP - General Family Medicine 05/23/23
--- OUTSIDE RECORDS SUMMARY | 2025-03-14 11:26 | XMS_ITS | Encounter Summary ---
Author Organization [facility] Address [address] [place] [address] Care Team Providers Care Poultry Farm Manager Name Role Phone Rosette Wilson APRN Primary Care Provider [phone] Encounter Details Date Type Department Care Team (Late st Contact Info) Description 07/02/2024 Results Follow-Up [facility] [address] [facility] [address] [place] [address] Melanie Prajapati PA-C [address] [facility] [address] [place], [place] [id number] Social History Tobacco Use Types Packs/Day Years Used Date Smoking Tobacco: Never Smokeless Tobacco: Never Alcohol Use Standard Drinks/Week Comments Not Currently 0 (1 standard drink = 0.6 oz pur e alcohol) rarely Comments No Sex and Gender Information Value Date Recorded Sex Assigned at Not on file Legal Sex Female 11:49 AM EDT Gender Identity Not on file Sexual Orientation Not on file documented as of this encounter Plan of Treatment Upcoming Encounters Date Type Department Care Team (Late st Contact Info) Description 05/19/2025 2:30 PM EST Office Visit [facility] [address] [facility] [address] [place] [address] Elvi Pandey MD [address] [place], [place] [id number] documented as of this encounter Visit Diagnoses Not on filedocumented in this encounter Care Teams Poultry Farm Manager Relationship Specialty Start Date End Date Rsoette Wilson APRN [address] [place] [address] PCP - General Family Medicine 05/23/23 documented as of this encounter
--- OUTSIDE RECORDS SUMMARY | 2025-03-14 11:26 | XMS_ITS | Patient Health Record ---
Author Organization [facility] Address [address] [place] [id number] Care Team Providers Care Grader Marker Name Role Phone Susu Frazier Primary Care Provider [phone] Shantelle Martinez Unavailable [phone] Allergies Allergen (clinical drug ingredient) Drug/Non Drug Allergy documented on EMR Reaction Allergy Type Onset Date Status Iodine Unknown Drug Allergy Active Reason For Referral No Information Medications Medication SIG (Take, Route, Frequency, Duration) Notes Start Date End Date Status Loratadine 10 MG 1 tab(s) orally once a day; Duration: 90 days Active Medrol 4 MG as directed orally daily; Duration: 6 days 10/08/2020 Not-Taking Albuterol Sulfate HFA 108 (90 Base) MCG/ACT 1 puff as needed Inhalation every 4 hrs, prn 02/15/2023 Active Vitamin D3 25 MCG (1000 UT) as directed orally once a day; Duration: 30 day(s) Active Zithromax Z-Paresh 250 MG as directed Orally 02/16/20 23 Active Cefdinir 300 MG 1 cap(s) orally ever y 12 hours; Duration: 10 day(s) 10/08/2020 Not-Taking Zithromax Tri-Paresh 500 MG 1 tab(s) orally once a day 10/08/2020 Not-Taking Levothyroxine Sodium 125 MCG 1 tab(s) orally once a day; Duration: 30 day(s) Active Bisoprolol Fumarate 5 MG 1 tab(s) orally once a day 02/06/2022 Active Benzonatate 200 MG 1 capsule Orally Thr ee times a day 02/15/2023 Active Medrol 4 MG as directed orally daily; Duration: 6 days 02/15/2023 Active Vitamin C 500 MG 1 tab(s) orally once a day; Duration: 30 day(s) Active Ciprofloxacin HCl 500 MG 1 tab(s) orally every 12 hours; Duration: 7 day(s) 10/02/2021 Not-Taking Singulair 10 MG 1 tab(s) orally once a day (in the evening); Duration: 90 days Active Immunizations Vaccine Route Administration Date Status Comme nts Tetanus Tdap-Adacel (over 7yrs) IM Intramuscular 01/22/2017 Administered Prevnar (PCV13) IM Intramuscular 01/22/2017 Administered PNEUMOVAX 23 VACCINE IM Intramuscular 07/14/2018 Administe red Fluzone High Dose (65yr and older) IM Intramuscular 01/22/2017 Administered Fluzone High Dose (65yr and older) IM Intramuscular 03/18/2019 Administered Fluzone High Dose (65yr and older) Unknown 03/12/2020 Administered Fluzone High Dose (65yr and older) Unknown 01/12/2021 Administered Fluzone High Dose (65yr and older) Unknown 02/08/2022 Administered COVID 19 Flako Unknown 07/08/2020 Administered COVID 19 Flako Unknown 02/02/2021 Administered Problems Problem Type SNOMED Code ICD Code Onset Dates Problem Status W/U Status Risk Notes Problem Hyperlipidemia (72006336) Hyperlipidemia (E78.5) Active confirmed Problem History of malignant melanoma of the skin (329728224268) History of melanoma (Z85.820) Active confirmed Problem Acquired hypothyroidism (721641079) Acquired hypothyroidism (E03.9) Active confirmed Problem Menopause (982483108) Postmenopausal syndrome (N95.1) Active confirmed Problem Allergic rhinitis (73599186) Allergic rhinitis, unspecified chronicity, unspecified seasonality, unspecified trigger (J30.9) Active confirmed Plan Of Treatment Pending Test Test Name Order Date Cologuard 05/17/2021 Cologuard 06/28/2022 COVID 19- Full Respiratory Panel with CO VID 10/08/2020 Insurance Providers Payer Name Payer Address Payer Phone Subscriber Number Group Number Insured Name Patient Relationship to Insured Coverage Start Date Coverage End Date [employer] (MEDICAR E) [address] [address] [place] [phone] [id number] SKYE LUCERO Self - patient is the insured Medications Administered Medication Instructions Date of Administration Dosage Notes Dexamethasone 06/26/2012 Dexamethasone 11/17/2012 1 mL Dexamethasone 05/04/2019 1 mL Dexamethasone 12/04/2019 1 mL Medical (General) History Medical History History ICD Code Melanoma- left inner thigh; follows with dermatology yearly Hypothyroidism hyperlipidemia allergic rhinitis Surgical History Surgery Date(Month/Year) cholecystectomy 2009 removed melanoma 2008
--- OUTSIDE RECORDS SUMMARY | 2025-03-14 11:26 | XMS_ITS | Clinical Summary ---
Author Organization Healthcare Address [address] [place] [address] Care Team Providers Care Fleet Maintenance Manager Name Role Phone Unavailable Primary Care Provider Unavailabl e Family History Medical History Relation Name Comments Diabetes Other Relation Name Status Comments Other Social History Tobacco Use Types Packs/Day Years Used Date Smoking Tobacco: Never Comments Unknown Sex and Gender Information Value Date Recorded Sex Assigned at Not on file Legal Sex Female 8:05 PM EDT Gender Identity Not on file Sexual Orientation Not on file Last Filed Vital Signs Vital Sign Reading Time Taken Comments Blood Pressure - - Pulse - - Temperature - - Respiratory Rate - - Oxygen Saturation - - Inhaled Oxygen Concentration - - Weight 89.8 kg (197 lb 15.9 oz) 11/05/2014 9:25 AM EDT Height 172.7 cm (5' 8 ) 11/05/2014 9:25 AM EDT Body Mass Index 30.11 11/05/2014 9:25 AM EDT Plan of Treatment Not on file Insurance
--- OUTSIDE RECORDS SUMMARY | 2025-03-14 11:26 | XMS_ITS | Encounter Summary ---
[facility] Address [address] [place] [address] Care Team Providers Care Corridor Redevelopment Manager Name Role Phone Rosette Wilson APRN Primary Care Provider [phone] Encounter Details Date Type Department Care Team (Late st Contact Info) Description 02/08/2025 Telephone [facility] [address] [facility] [address] [place] [address] Elvi Pandey MD [address] [facility] [address] [place] [address] Social History Tobacco Use Types Packs/Day Years [...] on file documented as of this encounter Progress Notes * Jumana Mejias RN - 02/08/2025 11:59 AM ESTAddended by: JUMANA MEJIAS on: 02/08/2025 11:59 AM Modules accepted: Orders documented in this encounter Miscellaneous Notes * Telephone Encounter - Jumana Mejias RN - 02/08/2025 11:58 AM EST Spoke with patient. She is instructed to come in for an EKG before we can fill the flecainide. She verbalizes understanding. * Telephone Encounter - Melanie Prajapati PA-C - 02/08/2025 11:54 AM EST Patient needs to come in and have an EKG done if she has been taking it not as prescribed before refill of the dose that she is taking will be refilled. * Telephone Encounter - Jumana Mejias RN - 02/08/2025 11:48 AM EST Patient left a voice mail message. She states she has a question about her flecainide. Spoke with patient. She states she sent in a refill request for her flecainide and they told her itwas too early. Patient had called office back in October c/o her heart skipping on again, and off again . EKG reviewed by Melanie Prajapati. Patient was instructed to take an extra dose of flecainide. And If you are having to take an extra dose on a regular basis then we may have to increase your dose to 75mg BID . Patient has been taking 75mg BID since then, not as needed. I will discuss with Melanieand call her back. She verbalizes understanding. documented in this encounter Plan of Treatment Upcoming Encounters Date Type Department Care Team (Late st Contact Info) Description 05/19/2025 2:30 PM EST Office Visit [facility] [address] [facility] [address] [facility] [address] [place] [address] Elvi Pandey MD [address] [facility] [address] [place] [address] Scheduled Orders Name Type Priority Associated Diagnoses Orde r Schedule ECG 12 Lead ECG Routine Palpitations Expected: 02/13/2025, Expires: 02/08/2026 documented as of this encounter Visit Diagnoses Diagnosis Palpitations- Primary documented in this encounter Care Teams Corridor Redevelopment Manager Relationship Specialty Start Date End Date Rosette Wilson APRN [address] [place] [id number] PCP - General Family Medicine 05/23/23 documented as of this encounter
[2025-03-14 11:33] LABS: Lactate Venous 1.3 mmol/L (0.4-2.0); VBG HCO3 23.8 mmol/L (23-30); VBG PCO2 34.5 mmol/L (35-51); VBG PH 7.46 mmol/L (7.31-7.41); VBG PO2 25.5 mmol/L (28-40)
[2025-03-14 11:39] LABS: Influenza A, PCR Not Detected (NotDetected); Influenza B, PCR Not Detected (NotDetected)
[2025-03-14 11:40] LABS: Hematocrit 38.9 % (37.0-47.0); Hemoglobin 13.3 g/dL (12.2-16.2); Immature Granulocytes % 0.4 %; Mean Corpuscular HGB Conc 34.2 g/dL (31.8-35.4); Mean Corpuscular Hemoglobin 29.8 pg (27.0-31.2); Mean Corpuscular Volume 87.0 fl (81-99); Nucleated Red Blood Cells % 0 %; Platelet Count 237 K/mm3 (142-424); Red Blood Count 4.47 M/mm3 (4.20-5.40); Red Cell Distribution Width-SD 42.0 fL; White Blood Count 8.2 K/mm3 (4.8-10.8)
[2025-03-14 11:44] VITALS: BP 120/89; PULSE 90; RESP 19; O2SAT 97
[2025-03-14 11:47] LABS: Microscopic, Urine URINE MICROSCOPIC (MICROSCOPIC)
[2025-03-14 11:50] LABS: Alanine Aminotransferase 28 U/L (12-78); Albumin Level 4.5 g/dl (3.5-5.0); Albumin/Globulin Ratio 1.4 (1.1-1.8); Alkaline Phosphatase 83 U/L (38-126); Anion Gap 9.8 mEq/L (5-15); Aspartate Amino Transferase 28 U/L (14-36); Bilirubin,Total 0.7 mg/dl (0.2-1.3); Blood Urea Nitrogen 18 mg/dl (7-17); Calcium 9.5 mg/dl (8.4-10.2); Carbon Dioxide 23 mmol/L (22.0-30.0); Chloride 101 mmol/L (98-107); Creatinine Clearance Estimated 70 mL/min (50-200); Creatinine,Serum 0.80 mg/dl (0.52-1.04); Estimated Glomerular Filt Rate 70 ml/min (>60); GFR (African American) 85 ML/MIN (>60); Globulin 3.3 g/dL (1.3-3.2); Glucose 110 mg/dl (74-100); Potassium 3.8 mmoL/L (3.5-5.1); Sodium 130 mmol/L (136-145); Total Protein,Serum 7.8 g/dl (6.3-8.2)
[2025-03-14 11:51] LABS: Magnesium 1.8 mg/dl (1.6-2.3)
[2025-03-14 11:51] LABS: Bilirubin,Urine Negative (Negative); Color,Urine YELLOW (Yellow); Glucose,Urine (UA) Negative (Negative); Ketones,Urine 1+ (Negative); Leukocyte Esterase,Urine Negative (Negative); PH,Urine 8.5 (5.0-8.5); Protein,Urine TRACE (Negative); Specific Gravity, Urine 1.025 (1.005-1.030); Urobilinogen,Urine 1.0 EU/dl (0.2)
[2025-03-14 11:52] LABS: Activated Partial Thrombo Time 23.5 seconds (22.8-30.6); INR 0.94 (0.9-1.1); Prothrombin Time 10.5 seconds (10.1-12.5)
[2025-03-14 11:58] LABS: D-Dimer 0.69 ug/mL (0.0-0.5)
[2025-03-14 12:00] VITALS: BP 122/70; PULSE 84; RESP 25; O2SAT 91
[2025-03-14 12:03] LABS: Coronavirus 19, PCR Detected (NotDetected)
[2025-03-14 12:04] LABS: Troponin I < 0.01 ng/ml (0.00-0.034)
[2025-03-14 12:05] LABS: Squamous Epithelial Cell,Urine Occasional #/hpf (0-5)
[2025-03-14] MEDS: ONDANSETRON 4MG/2ML VIAL 4 MG IV (12:09)
--- NOTE | 2025-03-14 12:25 | HMH.ITSTN ---
SAIRA Mckeon is going to speak with patient about iodine allergy
[2025-03-14 12:30] VITALS: BP 111/69; PULSE 81; RESP 19; O2SAT 93
[2025-03-14 12:40] LABS: Hepatitis C Ab Qual. W/ RFX NEGATIVE (Negative)
[2025-03-14 12:45] VITALS: BP 130/80; PULSE 77; RESP 16; TEMP 37.3; O2SAT 98
== END 2025-03-14 12:45 | disposition home or self-care (01) ==
PROVIDERS: Nurse Practitioner; Emergency Provider Student in an Organized Health Care Education/Training Program; PCP Family Medicine
DX: U07.1 COVID-19 (principal); R06.02 Shortness of breath; E87.1 Hypo-osmolality and hyponatremia; R53.83 Other fatigue
CPT/HCPCS: 71045; 80053; 81001; 82803; 83735; 84484; 85025; 85378; 85610; 85730; 86803; 87389; 87636; 93005; 96374; 99285; J2405